=== PATIENT | female | born 2000 | race Two or more races ===

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

== ENCOUNTER 2022-03-16 20:11 | Emergency (ER) | payer OTHER, SELFPAY ==
[2022-03-16 20:23] VITALS: BP 154/86; PULSE 120; RESP 18; TEMP 36.8; O2SAT 99; BMI 45.1
--- NOTE | 2022-03-16 20:49 | PC.NURSE ---
Pt approached this RN and reported that they were going to leave. This RN educated pt on importance of seeing a provider, pt state they don't want to wait and are going to see their pcp in the morning.
== END 2022-03-16 21:04 | disposition left against medical advice (07) ==
PROVIDERS: Emergency Provider Emergency Medicine
DX: R00.2 Palpitations (principal)
CPT/HCPCS: 99281

== ENCOUNTER 2022-03-22 13:19 | Outpatient (REF) | payer OTHER, SELFPAY ==
[2022-03-22 15:49] LABS: Estimated Average Glucose 114 mg/dL; Hemoglobin A1c % 5.6 %
[2022-03-22 15:55] LABS: Glucose Random 107 mg/dL (60-115)
[2022-03-22 16:17] LABS: Thyroid Stimulating Hormone 1.01 uIU/mL (0.32-4.0)
[2022-03-22 17:35] LABS: HCG Quantitative < 2 mIU/mL
[2022-03-24 03:54] LABS: DHEA Sulfate 246 mcg/dL (44-286); Lutenizing Hormone 9.5 mIU/mL; Prolactin 13.1 ng/mL
[2022-03-29 11:28] LABS: Testosterone, Free 5.4 pg/mL (0.1-6.4); Testosterone, Total 35 ng/dL (2-45)
== END 2022-03-22 13:20 | disposition home or self-care (01) ==
LOC: HO.LAB 13:19
PROVIDERS: Visit Provider Advanced Practice Midwife
DX: N91.1 Secondary amenorrhea (principal); E66.01 Morbid (severe) obesity due to excess calories; Z71.3 Dietary counseling and surveillance
CPT/HCPCS: 36415; 82627; 82947; 83001; 83002; 83036; 84146; 84402; 84403; 84443; 84702; 99212

== ENCOUNTER 2022-04-13 14:52 | Outpatient (REF) | payer OTHER, SELFPAY ==
--- NOTE | ~2022-04-13 | US_ITS ---
EXAMINATION: US PELVIS COMPLETE CLINICAL INFORMATION: Abnormal menstruation COMPARISON: Pelvic ultrasound 01/17/2019, CT abdomen pelvis 12/09/2017 TECHNIQUE: Transabdominal and transvaginal imaging was performed. FINDINGS: The uterus is of normal size and echogenicity measuring 8.0 x 3.7 x 5.9 cm. A regular homogeneous endometrium is identified measuring 0.8 cm. Suspect arcuate morphology of the uterus. Nabothian cysts in the cervix. Debris in the urinary bladder. Both ovaries are of normal size and echogenicity. The right measures 3.8 x 2.1 x 2.5 cm. The left measures 3.9 x 2.1 x 2.7 cm. There is no pelvic free fluid. US/US pelvic and transvaginal IMPRESSION: Suspect arcuate morphology of the uterus. Ovaries are unremarkable. Debris in the urinary bladder.
== END 2022-04-13 14:53 | disposition home or self-care (01) ==
LOC: HO.US 14:52
PROVIDERS: Visit Provider Advanced Practice Midwife
DX: N91.1 Secondary amenorrhea (principal); E66.01 Morbid (severe) obesity due to excess calories
CPT/HCPCS: 76830; 76856

== ENCOUNTER → 2022-04-24 09:51 | Outpatient (BNVA) | payer OTHER, SELFPAY | PROVIDERS: PCP Physician Assistant; Visit Provider Advanced Practice Midwife | DX: N91.1 Secondary amenorrhea (principal); R03.0 Elevated blood-pressure reading, without diagnosis of hypertension; Q51.810 Arcuate uterus; E66.01 Morbid (severe) obesity due to excess calories; Z30.09 Encounter for other general counseling and advice on contraception | CPT/HCPCS: 99212 ==

== ENCOUNTER 2022-07-24 19:59 | Emergency (ER) | payer OTHER, SELFPAY ==
--- NOTE | ~2022-07-24 | XR_ITS ---
EXAMINATION: XR CHEST CLINICAL INFORMATION: 11/06/2017 COMPARISON: None available. TECHNIQUE: 2 views of the chest were obtained. FINDINGS: No significant abnormality is noted involving the heart, lungs, mediastinum, bony thorax or soft tissues. XR/XR chest 2V IMPRESSION: Unremarkable examination.
[2022-07-24 20:39] VITALS: BP 132/78; PULSE 112; RESP 20; TEMP 36.8; O2SAT 97; BMI 35.1
[2022-07-24 22:40] VITALS: BP 147/55; PULSE 98; RESP 16; TEMP 36; O2SAT 98
== END 2022-07-24 23:10 | disposition left against medical advice (07) ==
PROVIDERS: Emergency Provider Emergency Medicine
DX: R09.89 Other specified symptoms and signs involving the circulatory and respiratory systems (principal); F12.90 Cannabis use, unspecified, uncomplicated
CPT/HCPCS: 71046; 99282; 99283

== ENCOUNTER 2022-09-25 10:10 | Emergency (ER) | payer OTHER, SELFPAY ==
--- NOTE | 2022-09-25 10:27 | ECG_ITS ---
Test Reason : ANXIETY Blood Pressure : / mmHG Vent. Rate : 095 BPM Atrial Rate : 095 BPM P-R Int : 174 ms QRS Dur : 082 ms QT Int : 360 ms P-R-T Axes : 051 015 019 degrees QTc Int : 452 ms Normal sinus rhythm Minimal voltage criteria for LVH, may be normal variant ( R in aVL ) Borderline ECG No previous ECGs available Referred By: Tye Acevedo Electronically Signed By:Keanu Moreno
[2022-09-25 10:30] VITALS: BP 158/101; PULSE 110; O2SAT 98; BMI 44.1
[2022-09-25 10:36] VITALS: BP 136/87; PULSE 107; RESP 17; TEMP 37.2; O2SAT 94
[2022-09-25] MEDS: hydrOXYzine HCL 25 MG TABLET PO (10:52)
--- NOTE | 2022-09-25 12:32 | ED_ITS ---
HPI - Anxiety General Chief Complaint: Anxiety Stated Complaint: Anxiety Time Seen by Provider: 09/25/22 10:22 Source: patient Mode of arrival: EMS Limitations: no limitations History of Present Illness HPI narrative: 22-year-old female presents with a panic attack. Patient has history of anxiety. She is currently not on any medications and has no treatment. Patient awoke today to find out that her childhood friend had committed suicide. This developed in emergent panic attack with palpitations, shortness breath, chest pain, numbness and tingling in bilateral hands. Symptoms are severe. There is no clear relieving features. She herself denies any suicidal homicidal ideation. Patient was concerned she was actually having a heart attack. Patient does not have a history of cardiac disease or family history of sudden cardiac in first-degree relatives. Related Data Previous Rx's Medication Instructions Recorded albuterol sulfate 90 mcg/actuation 1 inh inhalation QID PRN shortness 07/25/22 aerosol inhaler (Ventolin HFA) of breath or wheezing #8.5 grams hydroxyzine HCl 25 mg tablet 25 mg PO TID PRN anxiety #10 tabs 09/25/22 Allergies Allergy/AdvReac Type Severity Reaction Status Date / Time kiwi [KIWI] Allergy Unknown SWOLLEN Verified 07/25/22 13:54 TOUNGE/HIVES Review of Systems Review of Systems: CONSTITUTIONAL: Denies weight loss, fever and chills. HEENT: Denies changes in vision and hearing. RESPIRATORY: + SOB and cough. CV: + palpitations no CP. GI: Denies abdominal pain, nausea, vomiting and diarrhea. : Denies dysuria and urinary frequency. MSK: Denies myalgia and joint pain. SKIN: Denies rash and pruritus. NEUROLOGICAL: Denies headache and syncope. PSYCHIATRIC: Denies recent changes in mood. + anxiety and depression. All other ROS are negative unless in HPI PMFSH Past Medical History Medical History Anxiety No known health problems Surgical History No pertinent past surgical history Family History Family History Mother No problems noted. Father Stomach cancer Colon cancer Social History Social History Alcohol intake: never Patient Tobacco Use Status: Never used Tobacco Smoked in Last 30 Days: No Use of substances other than those prescribed or required for medical reasons: Yes Substance Use Type: Marijuana Advance Directives: No Advance Directives Information Provided: No Patient : No Physical Exam Vital Signs: Vital Signs: Last Vital Signs Temp 98.9 F 09/25/22 10:36 Pulse 107 H 09/25/22 10:36 Resp 17 09/25/22 10:36 BP 136/87 09/25/22 10:36 Pulse Ox 94 09/25/22 10:36 O2 Del Method Room Air 09/25/22 10:36 BMI result Body Mass Index 44.1 GEN: Well developed, anxious appearing, alert, oriented HEENT: Normocephalic, atraumatic, normal external ears, nose appears normal, no oropharyngeal edema or exudates Eyes: Normal to appearance Neck: Supple, no lymphadenopathy Respiratory: Talks in complete sentences, no respiratory distress, clear to auscultation bilaterally Cardiovascular: Regular rate and rhythm, no murmurs rubs or gallops Abdomen: Soft, nontender, nondistended, no guarding, no rebound Back: No CVA tenderness Extremities: No clubbing cyanosis or edema Neurologic: No focal neurologic deficits, cranial nerves 2-12 intact, strength is 5/5 bilaterally Skin: No rash Course Course Course Narrative: The workup is complete. X-ray was canceled at the patient's recommendation. Patient's EKG showed no evidence of ischemia. Patient's symptoms are most consistent with an acute panic attack. I will refer the patient for outpatient services. There is no indication for emergent evaluation. I will order the p atient Vistaril to take as needed. Medications Administered Discontinued Medications Generic Name Dose Route Start Last Admin Trade Name Freq PRN Reason Stop Dose Admin Hydroxyzine HCl 25 mg 09/25/22 10:27 09/25/22 10:52 Hydroxyzine Hcl 25 Mg Tablet PO 09/25/22 10:28 25 mg ONCE ONE Administration Medical Decision Making Medical Decision Making [facility] Narrative: 22-year-old female presents with chest pain, palpitations, shortness breath, bilateral hand tingling. These were not with exertion. This was associated with an acute stressful event namely the suicide of 1 of her childhood friends. Patient was anxious appearing on my evaluation, the rest of her examination was unremarkable. An EKG will be ordered to rule out any evidence of cardiac dysrhythmia or acute ischemic changes. I will order chest x-ray to rule out acute cardiopulmonary disease. I do not see an indication for laboratory analysis at this time given that the symptoms are situational and related to a traumatic event. Differential diagnosis includes anxiety, chest pain, atypical chest pain, acute coronary syndrome, cardiopulmonary disease, cardiac dysrhythmia Differential Diagnosis Differential Diagnoses: The differential diagnosis associated with the presentation includes (See above) Admission/Observation Consideration of admission/observation: Escalation of care including admission/observation considered Independent Interpretation I performed an independent interpretation of an: EKG (Normal sinus rhythm heart rate 95, normal intervals, no acute ST elevations depressions, no evidence of right heart strain) Independent Historian Clinical information obtained from an independent historian. History obtained from or confirmed by: Parent Prescription Management I considered prescription management with: Other (Anxiety medications) Discharge Plan Discharge Clinical Impression: Acute anxiety, Panic disorder Patient Disposition: Home, Self-Care Instructions: Panic Disorder (ED), Cognitive Behavioral Therapy (ED), Anxiety (ED) Prescriptions: New hydroxyzine HCl 25 mg tablet 25 mg PO TID PRN (Reason: anxiety) Qty: 10 0RF No Action albuterol sulfate [Ventolin HFA] 90 mcg/actuation HFA aerosol inhaler 1 inh inhalation QID PRN (Reason: shortness of breath or wheezing) Qty: 8.5 1RF Referrals: [facility] [place] [facility] [Provider Group]
== END 2022-09-25 13:11 | disposition home or self-care (01) ==
PROVIDERS: Emergency Provider Emergency Medicine; PCP Nurse Practitioner Family
DX: F41.1 Generalized anxiety disorder (principal); F41.0 Panic disorder [episodic paroxysmal anxiety]; R07.89 Other chest pain; R06.02 Shortness of breath
CPT/HCPCS: 93005; 99283; 99284

== ENCOUNTER → 2022-09-25 10:27 | Outpatient (BNV) | payer OTHER, SELFPAY | PROVIDERS: Emergency Provider Emergency Medicine; PCP Nurse Practitioner Family; Visit Provider Internal Medicine Cardiovascular Disease | DX: R00.2 Palpitations (principal) | CPT/HCPCS: 93010 ==

== ENCOUNTER 2022-11-17 03:01 | Emergency (ER) | payer OTHER, SELFPAY ==
--- NOTE | 2022-11-17 | ECG_ITS ---
Test Reason : ANXIETY/CP Blood Pressure : / mmHG Vent. Rate : 104 BPM Atrial Rate : 104 BPM P-R Int : 186 ms QRS Dur : 078 ms QT Int : 346 ms P-R-T Axes : 048 027 031 degrees QTc Int : 454 ms Sinus tachycardia Possible Left atrial enlargement Borderline ECG When compared with ECG of 25-SEP-2022 10:44, No significant change was found Referred By: Generic ED Physician Electronically Signed By:TED LATHAM
[2022-11-17 03:05] VITALS: BP 136/79; BP 158/98; PULSE 115; PULSE 130; RESP 18; TEMP 37.3; O2SAT 96; O2SAT 98; BMI 43.9
[2022-11-17 04:16] VITALS: BP 133/81; PULSE 94; RESP 18; O2SAT 98
[2022-11-17 04:37] LABS: MANUAL DIFF FLAG NO
[2022-11-17 04:38] LABS: Basophils Percent Auto 0.3 % (0-2); Eosinophils Absolute Auto 0.1 X10*3/uL (0.0-0.4); Hematocrit 38.3 % (37.0-47.0); Hemoglobin 13.9 g/dl (12.0-16.0); Imm Gran Abs Auto 0.05 X10*3/uL (0.00-0.03); Imm Gran Pct Auto 0.5 % (0.0-0.4); Lymphocytes Absolute Auto 2.7 X10*3/uL (1.2-4.9); Lymphocytes Percent Auto 27.1 % (20-40); Mean Corpuscular HGB Conc 36.3 g/dl (31.0-35.0); Mean Corpuscular Hemoglobin 29.4 pg (27.0-33.0); Mean Platelet Volume 9.7 fL (9.4-12.3); Monocytes Absolute Auto 0.7 X10*3/uL (0.1-1.2); Monocytes Percent Auto 6.5 % (2-11); Neutrophils Absolute Auto 6.5 x10*3/uL (2.0-8.3); Neutrophils Percent Auto 64.6 % (45-73); Platelet Count 349 X10*3/uL (160-400); Red Blood Count 4.73 X10*6/uL (4.20-5.50); Red Cell Distribution Width 13.2 % (11.0-16.0); White Blood Count 10.1 X10*3/uL (4.8-10.8)
[2022-11-17 04:53] LABS: Anion Gap 17 (12-20); Blood Urea Nitrogen 18 mg/dL (9-16); Calcium 10.7 mg/dL (8.4-10.2); Carbon Dioxide 21 mmol/L (22-29); Chloride 106 mmol/L (96-108); Creatinine Clr Calc Pharmacy 125.9; Estimated Glomerular Filt Rate > 60; Glucose Random 149 mg/dL (60-115); Potassium 4.5 mmol/L (3.3-5.1); Sodium 139 mmol/L (135-145)
[2022-11-17 05:02] LABS: Troponin-I High Sensitivity < 2.7 ng/L (<3.5-17.0)
== END 2022-11-17 06:57 | disposition left against medical advice (07) ==
PROVIDERS: Internal Medicine; Emergency Provider Emergency Medicine; PCP Nurse Practitioner Family
DX: R07.9 Chest pain, unspecified (principal); F41.9 Anxiety disorder, unspecified; F12.90 Cannabis use, unspecified, uncomplicated
CPT/HCPCS: 36415; 80048; 84484; 85025; 93005; 99283; 99284

== ENCOUNTER 2022-12-05 14:32 | Outpatient (AMB) | payer OTHER, SELFPAY ==
--- NOTE | 2022-12-05 14:38 | MHC.PC.OV ---
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 She states she has put on weight since then and is active. She stopped control around 2018. she would also like to talk about her anxiety that has been very bad that it causes heart palpitations and has been hospitalized for this. 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 Will order labs. Pt reports irregular/missed periods. 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 [facility] Medical History Anxiety No known health problems Surgical History No pertinent past surgical history Family History Mother Anxiety Father Stomach cancer Colon cancer Social History Alcohol intake: current Alcohol intake frequency: holidays/special occasions only Patient Tobacco Use Status: Current someday Tobacco user e-Cigarette/Vaping Use: Never Used Substance Use Type: Marijuana Cognitive needs: No Hearing needs: No Vision needs: No Female Reproductive History Menstrual Age of Menarche: 12 Duration of menses: 6-7 days Date of last menstrual period: 07/23/22 control method: none Questionnaire PHQ-9 Over the last 2 weeks, how often have you been bothered by any of the following problems? 1. Little interest or pleasure in doing things: several days 2. Feeling down, depressed, or hopeless: several days 3. Trouble falling or staying asleep, or sleeping too much: more than half the days 4. Feeling tired or having little energy: more than half the days 5. Poor appetite or overeating: several days 6. Feeling bad about yourself - or that you are a failure or have let yourself or your family down: nearly every day 7. Trouble concentrating on things, such as reading the newspaper or watching television: several days 8. Moving or speaking so slowly that other people could have noticed. Or the opposite - being so fidgety or restless that you have been moving around a lot more than usual: not at all 9. Thoughts that you would be better off or of hurting yourself in some way: not at all Total score: 11 Depression Screening Interpretation: Positive 77449 - PHQ-9 Billing: Yes Source: Developed by Drs. Felice Velasquez, Jennifer Braga, Abram Ramos and colleagues, with an educational crista from [employer]. Thrive Questionnaire Date Thrive assessed: 12/05/22 I am a: Patient What is your living situation today?: I have a steady place to live Within the past 12 months, did the food you bought not last and you didn't have the money to get more?: Never true Within the past 12 months, did you worry whether your food would run out before you got money to buy more?: Sometimes True Do you have trouble paying for medicines?: No Do you have trouble getting transportation to medical appointments?: No Do you have trouble paying your heating and electricity bill?: No Do you have trouble taking care of your child, family member or friend?: No Do you have trouble with day-to-day activities such as bathing, preparing meals, shopping, managing finances, etc.?: No Are you currently unemployed and looking for a job?: No Are you interested in more education?: Yes NEGRO-7 AMB Questionnaire NEGRO-7 Date NEGRO - 7 assessed: 12/05/22 Feeling nervous, anxious, or on edge: 2 = More than half the days Not being able to stop or control worryin = More than half the days Worrying too much about different things: 2 = More than half the days Trouble relaxin = Several days Being so restless that it is hard to sit still: 1 = Several days Becoming easily annoyed or irritable: 3 = Nearly every day Feeling afraid as if something awful might happen: 3 = Nearly every day Total NEGRO-7 score (0-4 normal; 5-9 mild; 10-14 moderate; 15-21 severe): 14 Source: Developed by Drs. Felice Velasquez, Jennifer Braga, Abram Ramos and colleagues, with an educational crista from [employer]. NEGRO-7 Assessment Billing NEGRO-7 Assessment Tool: NEGRO-7 Assessment 89656 Review of Systems Const Denies chills and Denies fever(s) Eyes Denies blurry vision ENT Denies vertigo, Denies dizziness and Denies sore throat Card Denies chest pain at rest, Denies chest pain with activity, Denies diaphoresis, Denies dyspnea and Denies dyspnea on exertion Resp Denies cough, Denies dyspnea, Denies dyspnea on exertion and Denies wheezing GI Denies abdominal pain, Denies melena, Denies hematochezia, Denies constipation, Denies diarrhea and Denies loose stools Denies hematuria Musc Denies numbness and Denies tingling Skin/Breast Denies lesions Neuro Denies vertigo, Denies dizziness, Denies numbness and Denies tingling Psych Denies anxiety, Denies depression, Denies homicidal ideation, Denies suicidal ideation and Denies other (substance abuse) Aller/Immun Denies wheezing Physical exam (Primary Care) Vital Signs: Last Vital Signs Pulse 104 H 12/05/22 14:41 BP 116/72 12/05/22 14:41 Pulse Ox 98 12/05/22 14:41 Oxygen Delivery Method Room Air 12/05/22 14:41 BMI result Body Mass Index 42.4 Tobacco/Smoking Status: Tobacco use Status Tobacco use date assessed 12/05/22 12/05/22 14:50 Patient Tobacco Use Status Current someday Tobacco 12/05/22 14:50 e-Cigarette/Vaping Use Never Used 12/05/22 14:50 Depression Screening Interpretation: Positive Const General: cooperative Nutritional Appearance: obese morbidly obese Orientation/consciousness: patient oriented x3 HENMT Head: Yes normal to inspection, Yes normocephalic and Yes atraumatic Ears: TM's normal bilaterally Eyes General: appearance normal, both eyes and all related structures Alignment and Position: alignment normal and position normal Neck Neck: Yes normal visual inspection and Yes no lymphadenopathy Thyroid: Thyroid normal Resp Effort & Inspection: normal respiratory effort Auscultation: clear to auscultation bilaterally Cardio Rate: regular rate Rhythm: regular rhythm Heart sounds: S1 normal heart sound present, S2 normal heart sound present and no murmurs GI Palpation (GI): Soft to palpation and nontender Auscultation: normal bowel sounds Skin Rashes: no rashes Neuro General: patient oriented x3, moves all extremities, no focal motor deficits and deep tendon reflexes 2+ bilaterally Romberg Test: Negative Psych Appearance: grossly normal Mental Status: mental status grossly normal Speech and movement: Normal speech and movement present Affect: normal affect Attitude: cooperative Thought process: Normal thought process present Thought content: Normal thought content present Insight: Good insight present (Psych) Judgement: Good judgement present (Psych) Assessment and Plan Assessment & Plan (1) Physical exam: Code(s): Z. - Encounter for general adult medical examination without abnormal findings Plan: Labs ordered Plan The patient agreed to the use of a medical equipment repair technician for this encounter. Scribed for TON Emmanuel by Amy Sparks medical equipment repair technician, on 12/05/2022 at 14:55 EST. Orders: Orders Complete Blood Count Auto Diff Today Z00.00 - Encounter for general adult medical examination without abnormal findings TSH reflex Free T4 Today Z00.00 - Encounter for general adult medical examination without abnormal findings Lipid Panel Today Z00.00 - Encounter for general adult medical examination without abnormal findings Comprehensive Mckean. Panel Fast Today Z00.00 - Encounter for general adult medical examination without abnormal findings UA CC w/rflx Micro + Cult Today Z00.00 - Encounter for general adult medical examination without abnormal findings Coding Level of Care Code New Pt Prev Care 18-39yr([id number] Diagnoses Physical exam Z00.00 Additional Codes NEGRO-7 Assessment Billing - NEGRO-7 Assessment Tool: NEGRO-7 Assessment 84375 ([id number])
[2022-12-05 14:41] VITALS: BP 116/72; PULSE 104; O2SAT 98; BMI 42.4
== END 2022-12-05 15:14 | disposition home or self-care (01) ==
PROVIDERS: Visit Provider Nurse Practitioner Family
DX: Z00.00 Encounter for general adult medical examination without abnormal findings (principal)
CPT/HCPCS: 99385

== ENCOUNTER 2022-12-17 11:09 | Outpatient (AMB) | payer OTHER, SELFPAY ==
[2022-12-17 12:51] VITALS: BP 122/80; PULSE 96; O2SAT 98; BMI 42.6
--- NOTE | 2022-12-17 12:51 | MHC.OFFWIV ---
Intake Vital Signs 12/17/22 12:51 Height 5 ft 5 in Weight 256 lb BMI 42.6 BP 122/80 Blood Pressure Location Lt brachial Position Sitting Pulse 96 Pulse Source Pulse Oximeter Pulse Oximetry (%) 98 Oxygen Delivery Method Room Air Intake Visit Reasons: EP ?Strep [id number] Intake Note: Ptis here today for a walk in visit. Pt c/o sore throat for 2 days. Pt states that she cant swallow today. Patient Tobacco Use Status: Current someday Tobacco user Allergies kiwi [KIWI] Allergy (Unknown, Verified 12/17/22 13:14) SWOLLEN TOUNGE/HIVES Medication List - Last Reconciled 12/17/22 by Geraldo Rosado MD No Known Home Meds Do you need a note to return to daycare/school/sports/work: No HPI EP ?Strep [id number] HPI Details Patient presents for a sick visit. Reporting symptoms of sinus congestion, sore throat and difficulty swallowing. Low-grade fever. No family member is sick. No recent travel. Patient reports symptoms of malaise and fatigue. [facility] Medical History Anxiety No known health problems Surgical History No pertinent past surgical history Family History Mother Anxiety Father Stomach cancer Colon cancer Social History Alcohol intake: current Alcohol intake frequency: holidays/special occasions only Patient Tobacco Use Status: Current someday Tobacco user e-Cigarette/Vaping Use: Never Used Substance Use Type: Marijuana Cognitive needs: No Hearing needs: No Vision needs: No Female Reproductive History Menstrual Age of Menarche: 12 Physical Exam Vital Signs: Last Vital Signs Pulse 96 12/17/22 12:51 BP 122/80 12/17/22 12:51 Pulse Ox 98 12/17/22 12:51 Oxygen Delivery Method Room Air 12/17/22 12:51 BMI result Body Mass Index 42.6 Const General: cooperative and healthy appearing Nutritional Appearance: well nourished Orientation/consciousness: patient oriented x3 Limitations: no limitations HEENT Head: Yes normal to inspection Eyes General: appearance normal, both eyes and all related structures Neck Neck: Yes normal visual inspection Chest Chest palpation & inspection: normal palpation of entire chest wall Resp Effort & Inspection: normal respiratory effort Neuro General: patient oriented x3 Results AMB Rapid Strep AMB Rapid Strep Negative Last Edit by JORDAN Rosenthal on 12/17/22 13:04 Results Reviewed Results Reviewed: Laboratory Last Values Strep Scn [facility] Negative 12/17/22 12:57 Assessment & Plan Assessment & Plan (1) URI (upper respiratory infection): Code(s): J06.9 - Acute upper respiratory infection, unspecified Qualifiers: URI type: unspecified viral URI Qualified Code(s): J06.9 - Acute upper respiratory infection, unspecified Plan: Antibiotics ordered. Increase fluid intake. Tylenol for aches and pains. If symptoms worsen, follow-up here for a recheck. Orders: Orders AMB Rapid Strep Screen Today Z13.9 - Encounter for screening, unspecified Coding Level of Care Code Est Pt Level 3 (40628) Diagnoses Viral upper respiratory tract infection J06.9 URI type: unspecified viral URI
== END 2022-12-17 13:25 | disposition home or self-care (01) ==
PROVIDERS: PCP Nurse Practitioner Family; Visit Provider Internal Medicine
DX: J06.9 Acute upper respiratory infection, unspecified (principal); J02.9 Acute pharyngitis, unspecified
CPT/HCPCS: 87880; 99213

== ENCOUNTER 2022-12-17 11:12 | Outpatient (REF) | payer OTHER, SELFPAY ==
[2022-12-17 13:31] LABS: MANUAL DIFF FLAG NO
[2022-12-17 13:49] LABS: Basophils Absolute Auto 0.1 X10*3/uL (0.0-0.2); Basophils Percent Auto 0.5 % (0-2); Eosinophils Absolute Auto 0.1 X10*3/uL (0.0-0.4); Eosinophils Percent Auto 1.2 % (0-4); Hematocrit 40.2 % (37.0-47.0); Hemoglobin 13.6 g/dl (12.0-16.0); Imm Gran Abs Auto 0.04 X10*3/uL (0.00-0.03); Imm Gran Pct Auto 0.3 % (0.0-0.4); Lymphocytes Absolute Auto 2.6 X10*3/uL (1.2-4.9); Lymphocytes Percent Auto 21.5 % (20-40); Mean Corpuscular HGB Conc 33.8 g/dl (31.0-35.0); Mean Corpuscular Hemoglobin 28.9 pg (27.0-33.0); Mean Corpuscular Volume 85.4 fL (80.0-98.0); Mean Platelet Volume 10.5 fL (9.4-12.3); Monocytes Absolute Auto 0.6 X10*3/uL (0.1-1.2); Monocytes Percent Auto 5.3 % (2-11); Neutrophils Absolute Auto 8.5 x10*3/uL (2.0-8.3); Neutrophils Percent Auto 71.2 % (45-73); Platelet Count 353 X10*3/uL (160-400); Red Blood Count 4.71 X10*6/uL (4.20-5.50); Red Cell Distribution Width 13.2 % (11.0-16.0); White Blood Count 11.9 X10*3/uL (4.8-10.8)
[2022-12-17 14:24] LABS: Alanine Aminotransferase 75 U/L (0-31); Albumin Level 4.6 g/dL (3.5-5.0); Alkaline Phosphatase 82 U/L (39-117); Anion Gap 18 (12-20); Aspartate Amino Transferase 45 U/L (5-31); Bilirubin Total 0.8 mg/dL (0.0-1.0); Blood Urea Nitrogen 11 mg/dL (9-16); Calcium 10.4 mg/dL (8.4-10.2); Carbon Dioxide 22 mmol/L (22-29); Chloride 102 mmol/L (96-108); Cholesterol 195 mg/dL (<200); Estimated Glomerular Filt Rate > 60; Glucose Fasting 124 mg/dL (60-99); HDL Cholesterol 34 mg/dL (>40); LDL Cholesterol Calculated 110 mg/dL (<100); Potassium 3.9 mmol/L (3.3-5.1); Sodium 138 mmol/L (135-145); Total Protein 8.1 g/dL (6.5-8.0); Triglycerides 258 mg/dL (<150)
[2022-12-17 14:28] LABS: TSH reflex Free T4 1.05 uIU/mL (0.32-4.0)
== END 2022-12-17 11:13 | disposition home or self-care (01) ==
LOC: HO.HMGCLDS 11:12
PROVIDERS: PCP Nurse Practitioner Family; Visit Provider Nurse Practitioner Family
DX: Z00.00 Encounter for general adult medical examination without abnormal findings (principal); R74.8 Abnormal levels of other serum enzymes
CPT/HCPCS: 36415; 80053; 80061; 84443; 85025

== ENCOUNTER 2022-12-27 14:14 | Emergency (ER) | payer OTHER, SELFPAY ==
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
[2022-12-27 14:37] VITALS: BP 148/90; PULSE 78; O2SAT 99; BMI 44.3
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
[2022-12-27] MEDS: Ondansetron ODT 4 MG TAB.RAPDIS TRANSLINGU (14:50)
--- NOTE | 2022-12-27 14:55 | PC.NURSE ---
pt medicated per provider order. currently being taken to CT. c-collar in place.
--- NOTE | 2022-12-27 15:02 | PC.NURSE ---
pt returned from CT. pt resting comfortably in no apparent distress in stretcher. respirations even and unlabored.
--- NOTE | 2022-12-27 15:34 | PC.NURSE ---
pt's grandma bedside for support. pt currently teary eyed stating that their whole body is now aching at this time.
--- NOTE | 2022-12-27 15:50 | PC.NURSE ---
c-collar removed by PA. provider speaking w/ pt and pt's family at this time.
== END 2022-12-27 16:04 | disposition home or self-care (01) ==
PROVIDERS: Emergency Provider Emergency Medicine Emergency Medical Services; PCP Nurse Practitioner Family
DX: Z04.1 Encounter for examination and observation following transport accident (principal); E66.9 Obesity, unspecified; Z68.41 Body mass index [BMI] 40.0-44.9, adult; F17.200 Nicotine dependence, unspecified, uncomplicated; F12.90 Cannabis use, unspecified, uncomplicated
CPT/HCPCS: 70450; 72125; 99282; 99284

== ENCOUNTER 2023-01-03 08:48 | Outpatient (REF) | payer OTHER, SELFPAY ==
--- NOTE | ~2023-01-03 | US_ITS ---
EXAMINATION: US ABDOMEN COMPLETE CLINICAL INFORMATION: Abnormal levels of other serum enzymes. COMPARISON: Ultrasound abdomen 02/12/2019. CT abdomen and pelvis 12/09/2017. TECHNIQUE: Real-time imaging of the abdominal viscera. FINDINGS: PANCREAS: Normal head and body, the tail is not well seen. ABDOMINAL AORTA: The proximal, mid, and distal segments are normal in caliber. INFERIOR VENA CAVA: Visualized portions are normal. LIVER: The liver is enlarged with the left lobe measuring 17.1 cm in the right lobe measuring 22.2 cm in sagittal oblique dimension. The liver contour is normal. There is diffuse increased liver parenchymal echogenicity, consistent with hepatic steatosis. Focal fatty sparing is seen adjacent to the gallbladder. No focal hepatic lesion. There is no intrahepatic biliary duct dilatation seen. GALLBLADDER: Normal. The gallbladder is physiologically distended without evidence of stones, sludge, polyps, wall thickening or pericholecystic fluid. COMMON BILE DUCT: Normal in caliber measuring 0.4 cm in diameter. RIGHT KIDNEY: Normal. No hydronephrosis. No renal calculi or focal parenchymal lesions. The kidney measures 12.0 cm in maximum dimension. LEFT KIDNEY: Normal. No hydronephrosis. No renal calculi or focal parenchymal lesions. The kidney measures 11.5 cm in maximum dimension. SPLEEN: Normal. The spleen measures 12.4 cm in maximum dimension. FREE FLUID: None. US/US abdomen complete IMPRESSION: Enlarged fatty liver.
== END 2023-01-03 08:49 | disposition home or self-care (01) ==
LOC: HO.HMGCX 08:48
PROVIDERS: PCP Nurse Practitioner Family; Visit Provider Nurse Practitioner Family
DX: R74.8 Abnormal levels of other serum enzymes (principal)
CPT/HCPCS: 76700

== ENCOUNTER 2023-01-04 10:31 | Outpatient (AMB) | payer OTHER, SELFPAY ==
--- NOTE | 2023-01-04 10:33 | A.OFFVIS_ITS ---
Intake Vital Signs 01/04/23 10:34 Height 5 ft 3 in Weight 251 lb BMI 44.5 BP 126/80 Intake Visit Reasons: irregular periods Intake Note: has not had menses Per Diem Rn Required: No Information Interpreted: non-clinical & clinical Color Making Supervisor: Color Making Supervisor Present (Estuardo) Allergies kiwi [KIWI] Allergy (Unknown, Verified 01/04/23 10:37) SWOLLEN TOUNGE/HIVES Medication List - Last Reconciled 01/04/23 by Iza Romero CNM No Known Home Meds Is last menstrual period known: No Post menopausal: No HPI irregular periods HPI Details Patient is here because she has been missing her.. She has been seen here before and these issues have been discussed in detail she is morbidly obese she has been prescribed Provera before and she has had a successful withdrawal bleed and she was started on norethindrone control pills, but she did not resume regular menses and then they got rid of all their furniture and she thinks that the last pack of control pills was stuck in the cushions of the couch. Since she last saw me she moved out of the. house with her mother and she is with her boyfriend and she says she has a lot less stress and she is working on getting a therapist and she saw her doctor a while back and he was encouraging her to continue on weight loss and she and her boyfriend are setting up meal plans and are going to the gym every day for 3 hours in the evening and they are working on getting healthier and stronger and she is working on losing the weight and she is actually feeling good working out she also got rid of toxic relationship/friend that was stressing her out as well she is hoping that she can keep going on her weight loss goal she is open to the weight management program she did not know there was 1. She does want to figure out why she is not getting her. And I explained again that it has to do with everything that we have talked about and her weight has a huge in this and until she loses the weight she would refer return to normal menses. She will be due for her 1st Pap smear when she turns 23. She says she was checked for all STIs with her primary care provider in [place]. She says she uses condoms every time the last time she did not use condoms was in September. She wants to get the medicine to bring on a period. Again [facility] Medical History Elevated liver enzymes Physical exam Shortness of breath Arcuate uterus control counseling Elevated blood pressure reading Obesity, morbid, BMI 40.0-49.9 Breast mass, right URI (upper respiratory infection) Pharyngitis Abnormal laboratory test High risk sexual behavior in adolescent Amenorrhea, secondary Anxiety No known health problems Surgical History No pertinent past surgical history Family History Mother Anxiety Father Stomach cancer Colon cancer Social History Alcohol intake: current Alcohol intake frequency: holidays/special occasions only Patient Tobacco Use Status: Current someday Tobacco user e-Cigarette/Vaping Use: Never Used Substance Use Type: Marijuana Cognitive needs: No Hearing needs: No Vision needs: No Female Reproductive History Menstrual Age of Menarche: 12 control method: none Total pregnancies: 1 Ab spontaneous: 1 Physical Exam Vital Signs: Last Vital Signs BP 126/80 01/04/23 10:34 BMI result Body Mass Index 44.5 Results AMB Test Urine AMB Test Urine Negative Last Edit by POLI Jones on 01/04/23 11:24 Results Reviewed Results Reviewed: test here was negative. Assessment & Plan Assessment & Plan (1) Anxiety: Code(s): F41.9 - Anxiety disorder, unspecified (2) Amenorrhea, secondary: Code(s): N91.1 - Secondary amenorrhea (3) Arcuate uterus: Code(s): Q51.810 - Arcuate uterus (4) control counseling: Code(s): Z30.09 - Encounter for other general counseling and advice on contraception (5) Obesity, morbid, BMI 40.0-49.9: Code(s): E66.01 - Morbid (severe) obesity due to excess calories Plan Patient is here because she has been missing her.. She has been seen here before and these issues have been discussed in detail she is morbidly obese she has been prescribed Provera before and she has had a successful withdrawal bleed and she was started on norethindrone control pills, but she did not resume regular menses and then they got rid of all their furniture and she thinks that the last pack of control pills was stuck in the cushions of the couch. Since she last saw me she moved out of the. house with her mother and she is with her boyfriend and she says she has a lot less stress and she is working on getting a therapist and she saw her doctor a while back and he was encouraging her to continue on weight loss and she and her boyfriend are setting up meal plans and are going to the gym every day for 3 hours in the evening and they are working on getting healthier and stronger and she is working on losing the weight and she is actually feeling good working out she also got rid of toxic relationship/friend that was stressing her out as well she is hoping that she can keep going on her weight loss goal she is open to the weight management program she did not know there was 1. She does want to figure out why she is not getting her. And I explained again that it has to do with everything that we have talked about and her weight has a huge in this and until she loses the weight she would refer return to normal menses. She will be due for her 1st Pap smear when she turns 23. She says she was checked for all STIs with her primary care provider in [place]. She says she uses condoms every time the last time she did not use condoms was in September. She wants to get the medicine to bring on a period. Again After lengthy discussion about her anxiety in the weight loss and her motivation and recent 1-2 weeks of success and to build on that decision made by her to retake the Provera to bring on a period because she really feels like she needs to get 1. When she gets the withdrawal bleed a couple of days into it I would like her to start the norethindrone control pills I recommend she continue using the condoms which she says she does anyway but hopefully this will help prevent the buildup of the lining. We will see her for office services clerk annual exam and full 1st pelvic and Pap at the next visit I am also placing weight manage were referral for her because she says she is interested and I wished her continued work on her efforts. Orders: Orders AMB HCG Urine Test Today Z32.02 - Encounter for test, result negative Referrals Medical Weight Management Referral E66.01 - Morbid (severe) obesity due to excess calories, F41.9 - Anxiety disorder, unspecified, N91.1 - Secondary amenorrhea, Q51.810 - Arcuate uterus, Z30.09 - Encounter for other general counseling and advice on contraception Medications: New medroxyprogesterone (Provera) 10 mg PO DAILY 10 tabs 0RF norethindrone (contraceptive) She can start the pills a couple of days in to the withdrawal bleed from the Provera, 1 pill every day 0.35 mg PO DAILY 84 tabs 3RF Coding Level of Care Code Est Pt Level 3 (86127) Diagnoses Anxiety F41.9 Amenorrhea, secondary N91.1 Arcuate uterus Q51.810 control counseling Z30.09 Obesity, morbid, BMI 40.0-49.9 E66.01
[2023-01-04 10:34] VITALS: BP 126/80; BMI 44.5
== END 2023-01-04 11:58 | disposition home or self-care (01) ==
PROVIDERS: PCP Nurse Practitioner Family; Visit Provider Advanced Practice Midwife
DX: F41.9 Anxiety disorder, unspecified (principal); N91.1 Secondary amenorrhea; Q51.810 Arcuate uterus; Z30.09 Encounter for other general counseling and advice on contraception; E66.01 Morbid (severe) obesity due to excess calories; Z32.02 Encounter for pregnancy test, result negative
CPT/HCPCS: 99213

== ENCOUNTER → 2023-01-04 10:31 | Outpatient (BNVA) | payer OTHER, SELFPAY | PROVIDERS: PCP Nurse Practitioner Family; Visit Provider Advanced Practice Midwife | DX: Z30.09 Encounter for other general counseling and advice on contraception (principal); Z32.02 Encounter for pregnancy test, result negative; N91.1 Secondary amenorrhea; F41.9 Anxiety disorder, unspecified; Q51.810 Arcuate uterus; E66.01 Morbid (severe) obesity due to excess calories; Z68.41 Body mass index [BMI] 40.0-44.9, adult | CPT/HCPCS: 81025; 99212 ==

== ENCOUNTER → 2023-01-15 10:21 | Outpatient (BNVA) | payer OTHER, SELFPAY | PROVIDERS: PCP Nurse Practitioner Family; Visit Provider Physician Assistant ==

== ENCOUNTER 2023-01-16 08:03 | Outpatient (AMB) | payer OTHER, SELFPAY ==
--- NOTE | 2023-01-16 12:30 | A.OFFVIS_ITS ---
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 HPI Details Start time: 8.15am, End time: 9am ?I spent 40 minutes speaking with the patient on the phone plus an additional 5 minutes reviewing and updating records for a total of 45 minutes HPI Comments History of Present Illness Details Previous weight loss efforts: 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, 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 Wakes up: 8am, Sleeps: 12pm Breakfast: skips Lunch: skips Dinner: 6pm Snacks: 2 snacks before dinner (Cheez it, vegetables), one snack after dinner (cookies or avocado) Exercise: home exercise videos Fluids: Coffee/Tea: none, juice: frequently, ETOH: 1/month PFSH Medical History (Updated 01/16/23 @ 12:33 by Luis Cuellar MD) Morbid obesity Elevated liver enzymes Physical exam Shortness of breath Arcuate uterus control counseling Elevated blood pressure reading Obesity, morbid, BMI 40.0-49.9 Breast mass, right URI (upper respiratory infection) Pharyngitis Abnormal laboratory test High risk sexual behavior in adolescent Amenorrhea, secondary Anxiety No known health problems Surgical History No pertinent past surgical history Family History Mother Anxiety Father Stomach cancer Colon cancer Social History Alcohol intake: current Alcohol intake frequency: holidays/special occasions only Patient Tobacco Use Status: Current someday Tobacco user e-Cigarette/Vaping Use: Never Used Substance Use Type: Marijuana Cognitive needs: No Hearing needs: No Vision needs: No Female Reproductive History Menstrual Age of Menarche: 12 Assessment & Plan Assessment & Plan (1) Morbid obesity: Code(s): E66.01 - Morbid (severe) obesity due to excess calories Plan: 1.? Plan for lap sleeve gastrectomy. If diaphragmatic or ventral hernias are present at time of surgery, these will be repaired laparoscopically as well. Risks and complications were discussed in detail including possible conversion to an open procedure, anastomotic leak, bleeding requiring transfusion, small bowel obstruction, , DVT and pulmonary embolism, cardiac, or pulmonary complications, as half-way complications such as anastomotic ulcer, insufficient weight loss and vitamin deficiencies. I emphasized the importance of close follow-up, adherence to instructions and good communication. 2. Nutritional counseling. Start with 2 Isopure INFUSIONS protein (buy at [employer], or C) shakes (HALF scoop in 8oz water) at 9am-11am and 12pm-12pm, 1 protein bar (Zone Perfect protein bars, buy at [employer], ?[employer], [facility], or [employer]) at 3pm-5pm, dinner at 6pm (8 forks of protein and 8 forks of salad/vegetables) AND TWO more protein bars after dinner at 7pm-9pm and 10pm-12am So you do 2 protein shakes, 3 protein bars and one meal per day. Meal to include lean meat (beef, fish, pork, turkey, chicken), or serbian yogurt, or egg whites, or beans with a salad with olive oil and fruits (berries, pears, apples, kiwi). Avoid salt, breads, potatoes, rice, pasta, desserts. 3. Each shake would be drunk slowly, like coffee in a period of 2 hours. 4. Cut each bar in 4 pieces and eat each piece in 30min ?to make each bar last 2 hours. 5. I emphasized the importance of measuring accurately the food portion and measure it when serving the food in plate 6. The meal portions include 8 full-size forks of meat and 8 full-size forks of salad. You always eat the meat portion but you can replace up to 4 forks for salad/vegetables with rice, potatoes or pasta, or a fruit ?if you like. The less you do it the better weight loss will be. 7. One full-size fork is what it can be scooped on the fork without falling aside and not what can be bit with the fork. Use regular forks like those you find in a typical restaurant. 8.? Please send me weight measurements as soon as possible and then once a week. Always include your diet and exercise plan. 9. Continue home exercise videos daily for 45-60 minutes per session. 10. I would strongly recommend to purchase a stationary bike, elliptical or treadmill at home that can track calories. Let me know if you do so I can give you an exercise plan. 11.?It is important of avoiding and for at least 18 months postoperatively and has been discussed at the infosession. 12. Goal is to lose at least 1.5-2lbs per week 13. Goal to lose 10% of your weight before surgery, which is about 25lbs. Ultimate weight goal: 225lbs before surgery 14. Please follow the diet plan exactly without any change. If you don't like something about the plan or you feel hungry you need to communicate with me so I can help you revise the plan. You should not change the plan yourself. (2) Anxiety: Code(s): F41.9 - Anxiety disorder, unspecified Orders: Orders Lipid Panel Today E66.01 - Morbid (severe) obesity due to excess calories IRON PROFILE Today E66.01 - Morbid (severe) obesity due to excess calories Comprehensive Met. Panel Today E66.01 - Morbid (severe) obesity due to excess calories Ferritin Today E66.01 - Morbid (severe) obesity due to excess calories H Pylori Breath Test Today E66.01 - Morbid (severe) obesity due to excess calories US abdomen comp w elastography Today E66.01 - Morbid (severe) obesity due to excess calories XR chest 2V Today E66.01 - Morbid (severe) obesity due to excess calories Insulin Today E66.01 - Morbid (severe) obesity due to excess calories Complete Blood Count Auto Diff Today E66.01 - Morbid (severe) obesity due to excess calories Vitamin B12 and Folate Today E66.01 - Morbid (severe) obesity due to excess calories Zinc Today E66.01 - Morbid (severe) obesity due to excess calories Vitamin B1 Today E66.01 - Morbid (severe) obesity due to excess calories Vitamin A Today E66.01 - Morbid (severe) obesity due to excess calories C Reactive Protein Today E66.01 - Morbid (severe) obesity due to excess calories PTHI Today E66.01 - Morbid (severe) obesity due to excess calories TSH reflex Free T4 Today E66.01 - Morbid (severe) obesity due to excess calories Vitamin D 25-OH Total Today E66.01 - Morbid (severe) obesity due to excess calories Hemoglobin A1c Today E66.01 - Morbid (severe) obesity due to excess calories ECG 12 lead EKG Today E66.01 - Morbid (severe) obesity due to excess calories FL upper GI w air Today E66.01 - Morbid (severe) obesity due to excess calories Referrals Nutrition/Dietitian Referral E66.01 - Morbid (severe) obesity due to excess calories Behavioral Health Referral E66.01 - Morbid (severe) obesity due to excess calories Telehealth Telehealth Location of provider rendering services: practice address Location of patient: address on file Patient Identification confirmed using: Name, : Yes Telehealth method: voice only Patient verbally consented to treatment: Yes Patient verbally consented to billing insurance company: Yes Patient informed of any privacy concerns related to visit: Yes Minutes spent on Phone/Video with Pt.: 45 Coding Level of Care Code Tele New Pt Level 4 (76759) Diagnoses Morbid obesity E66.01 Anxiety F41.9 Time Spent (min) 45
[2023-01-16 12:31] VITALS: BMI 44.4
== END 2023-01-16 13:01 | disposition home or self-care (01) ==
LOC: HO.HBS 08:03
PROVIDERS: PCP Nurse Practitioner Family; Visit Provider Surgery
DX: E66.01 Morbid (severe) obesity due to excess calories (principal); F41.9 Anxiety disorder, unspecified
CPT/HCPCS: 99204

== ENCOUNTER → 2023-01-16 08:03 | Outpatient (BNVA) | payer OTHER, SELFPAY | PROVIDERS: PCP Nurse Practitioner Family; Visit Provider Surgery ==

== ENCOUNTER 2023-01-28 10:48 | Outpatient (AMB) | payer OTHER, SELFPAY ==
--- NOTE | 2023-01-28 11:00 | MHC.NURWM ---
Intake Intake Visit Reasons: H. Pylori Intake Note: Patient presents for collection of H Pylori breath test. Patient has been fasting for 1 hour (nothing to eat, drink, no chewing gum or smoking) has not taken any antacid medication for at least 2 weeks and has no allergies to artificial sweeteners.?? Allergies kiwi [KIWI] Allergy (Unknown, Verified 01/16/23 12:32) SWOLLEN TOUNGE/HIVES Nursing Note Patient presents for collection of H Pylori breath test. Patient has been fasting for 1 hour (nothing to eat, drink, no chewing gum or smoking) has not taken any antacid medication for at least 2 weeks and has no allergies to artificial sweeteners.???This test checks for an overgrowth of bacteria in your stomach. We all have bacteria but some may have more than others. It is treatable. if the test comes back negative there is nothing else to do. If the test result is positive we will treat you with 2 antibiotics and a medication to decrease the acid in your stomach (PPI) for 2 weeks. Two weeks after you have completed the treatment we will retest you to make sure the overgrowth has resolved. H pylori education: Process for specimen collection and reason for testing was explained to the patient. Specimen collection. Patient instructed to take a deep breath and then exhale into the blue bag, filling it up as much as possible. Patient instructed to drink a mixture of water and the artificial sweetener with a straw. A 15 minute wait period was observed. Patient instructed to take a deep breath and then exhale into the juan bag, filling it up as much as possible.?? Coding Level of Care Code Est Pt Level 1 (02886) Diagnoses Morbid obesity E66.01 Assessment & Plan Assessment & Plan (1) Morbid obesity: Code(s): E66.01 - Morbid (severe) obesity due to excess calories Plan
== END 2023-01-28 13:45 | disposition home or self-care (01) ==
PROVIDERS: PCP Nurse Practitioner Family; Visit Provider Physician Assistant Surgical
DX: E66.01 Morbid (severe) obesity due to excess calories (principal)

== ENCOUNTER 2023-01-28 10:48 | Outpatient (REF) | payer OTHER, SELFPAY ==
--- NOTE | ~2023-01-28 | XR_ITS ---
EXAMINATION: XR CHEST CLINICAL INFORMATION: Reason for Exam E66.01 - Morbid (severe) obesity due to excess calories COMPARISON: Chest radiograph 07/25/2019 TECHNIQUE: One view of the chest FINDINGS: Lines and tubes: None. Clear lungs. No pleural effusion. No pneumothorax. Unchanged cardiomediastinal silhouette. XR/XR chest 2V IMPRESSION: * Clear lungs.
[2023-01-28 11:51] LABS: MANUAL DIFF FLAG NO
[2023-01-28 11:55] LABS: Basophils Percent Auto 0.4 % (0-2); Eosinophils Absolute Auto 0.1 X10*3/uL (0.0-0.4); Eosinophils Percent Auto 1.8 % (0-4); Hematocrit 39.7 % (37.0-47.0); Hemoglobin 14.3 g/dl (12.0-16.0); Imm Gran Abs Auto 0.03 X10*3/uL (0.00-0.03); Imm Gran Pct Auto 0.4 % (0.0-0.4); Lymphocytes Absolute Auto 2.3 X10*3/uL (1.2-4.9); Lymphocytes Percent Auto 31.2 % (20-40); Mean Corpuscular Hemoglobin 29.4 pg (27.0-33.0); Mean Corpuscular Volume 81.5 fL (80.0-98.0); Mean Platelet Volume 9.7 fL (9.4-12.3); Monocytes Absolute Auto 0.4 X10*3/uL (0.1-1.2); Monocytes Percent Auto 5.2 % (2-11); Neutrophils Absolute Auto 4.4 x10*3/uL (2.0-8.3); Platelet Count 330 X10*3/uL (160-400); Red Blood Count 4.87 X10*6/uL (4.20-5.50); Red Cell Distribution Width 13.1 % (11.0-16.0); White Blood Count 7.2 X10*3/uL (4.8-10.8)
[2023-01-28 12:22] LABS: Estimated Average Glucose 123 mg/dL; Hemoglobin A1C 149.9272 umol/L; Hemoglobin A1c % 5.9 % (<6.0)
[2023-01-28 13:07] LABS: Alanine Aminotransferase 136 U/L (0-31); Albumin Level 4.8 g/dL (3.5-5.0); Alkaline Phosphatase 84 U/L (39-117); Anion Gap 12 (12-20); Aspartate Amino Transferase 88 U/L (5-31); Bilirubin Total 0.8 mg/dL (0.0-1.0); Blood Urea Nitrogen 10 mg/dL (9-16); C Reactive Protein 1.74 mg/dL (< or = 0.50); Calcium 10.3 mg/dL (8.4-10.2); Carbon Dioxide 25 mmol/L (22-29); Chloride 105 mmol/L (96-108); Cholesterol 195 mg/dL (<200); Estimated Glomerular Filt Rate > 60; Ferritin 300 ng/mL (10-122); Glucose Random 130 mg/dL (60-115); HDL Cholesterol 32 mg/dL (>40); Insulin 30 uU/mL (2-29); Iron 66 mcg/dL (30-160); LDL Cholesterol Calculated 126 mg/dL (<100); Percent Iron Saturation 20 % (15-50); Potassium 4.1 mmol/L (3.3-5.1); Sodium 138 mmol/L (135-145); TSH reflex Free T4 0.91 uIU/mL (0.32-4.0); Total Iron Binding Capacity 330 mcg/dL (228-428); Total Protein 8.4 g/dL (6.5-8.0); Triglycerides 189 mg/dL (<150); Unsaturated Iron Binding 264 ug/dL; Vitamin D 25-OH Total 21.4 ng/mL (>30)
[2023-01-28 13:18] LABS: Vitamin B12 711 pg/mL (200-900)
[2023-01-30 15:54] LABS: Calcium (PTHI) 10.3 mg/dL (8.6-10.2); PTHI 22 pg/mL (16-77)
[2023-01-30 17:42] LABS: Zinc 85 mcg/dL (60-130)
[2023-01-31 10:51] LABS: H Pylori Breath Test Negative (Negative)
[2023-01-31 16:32] LABS: Vitamin A 50 mcg/dL (38-98)
[2023-02-02 10:28] LABS: Vitamin B1 9 nmol/L (8-30)
== END 2023-01-28 10:49 | disposition home or self-care (01) ==
LOC: HO.XRAY 10:48
PROVIDERS: PCP Nurse Practitioner Family; Visit Provider Surgery
DX: E66.01 Morbid (severe) obesity due to excess calories (principal); Z11.0 Encounter for screening for intestinal infectious diseases
CPT/HCPCS: 36415; 71046; 80053; 80061; 82306; 82607; 82728; 82746; 83013; 83036; 83525; 83540; 83970; 84425; 84443; 84590; 84630; 85025; 86140; 99211

== ENCOUNTER 2023-02-03 18:00 | Emergency (ER) | payer OTHER, SELFPAY ==
--- NOTE | ~2023-02-03 | XR_ITS ---
EXAMINATION: XR CHEST CLINICAL INFORMATION: Cough. COMPARISON: Chest done on 01/28/2023. TECHNIQUE: 2 views of the chest were obtained. FINDINGS: No significant abnormality is noted involving the heart, lungs, mediastinum, bony thorax or soft tissues. XR/XR chest 2V IMPRESSION: Unremarkable examination.
[2023-02-03 18:43] VITALS: BP 151/80; PULSE 100; RESP 16; TEMP 37.4; O2SAT 98; BMI 40.7
--- NOTE | 2023-02-03 19:44 | ED.GENADULT ---
HPI - General Adult General Chief complaint: Fever Stated complaint: fever,weakness Time Seen by Provider: 02/03/23 19:34 Source: patient, RN notes reviewed and old records reviewed Mode of arrival: ambulatory History of Present Illness HPI narrative: 22-year-old female with a past medical history of anxiety, obesity, presenting to the ED complaining of subjective fever, dry cough, SOB, myalgias, chills, nausea/vomiting x yesterday. Admits to sick Aunt with similar symptoms. Denies abdominal pain, ear pain, sore throat, chest pain, recent travel, sick contacts. Admits to taking Motrin w/some relief Onset (ago): hour(s) Related Data Previous Rx's Medication Instructions Recorded norethindrone (contraceptive) 0.35 0.35 mg PO DAILY #84 tabs 01/04/23 mg tablet acetaminophen 500 mg tablet 500 mg PO Q6H PRN fever or pain 02/03/23 (Tylenol Extra Strength) #14 tabs ibuprofen 400 mg tablet 400 mg PO Q6H PRN fever or pain 02/03/23 #20 tabs oseltamivir 75 mg capsule (Tamiflu) 75 mg PO Q12H 5 days #10 caps 02/03/23 Allergies Allergy/AdvReac Type Severity Reaction Status Date / Time kiwi [KIWI] Allergy Unknown SWOLLEN Verified 02/03/23 18:43 TOUNGE/HIVES Review of Systems Review of Systems: Constitutional: +subj Fever, + Chills ENT/Mouth: No Ear Pain, + Nasal Congestion, No Sinus Pain, No Hoarseness, No sore throat,+Rhinorrhea, No Swallowing Difficulty Cardiovascular: No Chest Pain, + SOB Respiratory: + Cough, No Sputum, No Wheezing Gastrointestinal: + Nausea, + Vomiting, No Diarrhea, No Constipation, No Abdominal pain Genitourinary: No Dysuria, No Urinary Frequency, No Hematuria Musculoskeletal: No joint pain, + Myalgias, No Joint Swelling Skin: No Skin Lesions, No rash Neuro: No Weakness, Yes all other systems are reviewed and are negative Constitutional: Constitutional: Reports as per HPI [facility] Past Medical History Attestation statement: The following information was validated with the patient. Source: old records reviewed Medical History Morbid obesity Elevated liver enzymes Physical exam Shortness of breath Arcuate uterus control counseling Elevated blood pressure reading Obesity, morbid, BMI 40.0-49.9 Breast mass, right URI (upper respiratory infection) Pharyngitis Abnormal laboratory test High risk sexual behavior in adolescent Amenorrhea, secondary Anxiety No known health problems Surgical History No pertinent past surgical history Family History Family History Mother Anxiety Father Stomach cancer Colon cancer Social History Alcohol intake: current Alcohol intake frequency: holidays/special occasions only Patient Tobacco Use Status: Current someday Tobacco user Smoked in Last 30 Days: No e-Cigarette/Vaping Use: Never Used Use of substances other than those prescribed or required for medical reasons: No Substance Use Type: Marijuana Advance Directives: No Advance Directives Information Provided: No Patient : No Cognitive needs: No Hearing needs: No Vision needs: No Physical Exam ED Vital Signs: Vital Signs - 24 hr 02/03/23 18:43 02/03/23 20:32 Temperature 99.4 F 101.7 F H Pulse Rate 100 Respiratory Rate 16 Blood Pressure 151/80 H Pulse Oximetry 98 Oxygen Delivery Method Room Air BMI result Body Mass Index 40.7 Const General: cooperative, healthy appearing and no acute distress Orientation/consciousness: patient oriented x3 Limitations: no limitations HENMT Head: Yes normal to inspection and Yes atraumatic Ears: hearing grossly normal bilaterally, external ears normal, TM's normal bilaterally and mastoids normal General nose exam: Normal external nose present and Nasal discharge present Face and sinus: Yes normal facial exam Mouth: Normal oral and palatal mucosa present Throat: Yes posterior oropharynx normal, Yes tonsils normal, Yes uvula midline, No uvula laterally displaced and No uvular edema Eyes General: appearance normal, both eyes and all related structures EOM: EOMs intact bilaterally Neck Neck: Yes normal visual inspection and Yes no meningeal signs Resp Effort & Inspection: normal respiratory effort and no respiratory distress Auscultation: clear to auscultation bilaterally, no crackles, no rales, no rhonchi and no wheezes Cardio Rate: regular rate Heart sounds: S1 normal heart sound present and S2 normal heart sound present GI Inspection: Yes normal to inspection Palpation (GI): Soft to palpation and nontender Skin Rashes: no rashes Wounds: no wounds Neuro General: patient oriented x3, gait normal, tone normal, moves all extremities and no meningeal signs Cranial nerves: Yes CN's II-XII intact bilaterally Gait exam (Neuro): Normal gait present Extrem General: Yes normal to inspection Course Course Course Narrative: -influenza A positive. RSV/COVID and strep negative >> patient in the window for Tamiflu, is interested. -2042--febrile 101.7 > PO Motrin & Tylenol given -2099--ED care transferred to DIANE Nieto pending temp recheck & CXR, anticipated discharge Results discussed with patient including worrisome signs and symptoms and strict return precautions, and when to return to the emergency department. They verbalized understanding and feel safe for discharge at this time. Medications Administered Discontinued Medications Generic Name Dose Route Start Last Admin Trade Name Freq PRN Reason Stop Dose Admin Acetaminophen 650 mg 02/03/23 20:33 02/03/23 20:37 Acetaminophen 325 Mg Tablet PO 02/03/23 20:34 650 mg ONCE ONE Administration Ibuprofen 600 mg 02/03/23 20:08 02/03/23 20:17 Ibuprofen 600 Mg Tablet PO 02/03/23 20:09 600 mg ONCE ONE Administration Medical Decision Making Medical Decision Making [facility] Narrative: 22-year-old female with a past medical history of anxiety, obesity, presenting to the ED complaining of subjective fever, dry cough, SOB, myalgias, chills, nausea/vomiting x yesterday. On exam vital signs stable, low-grade temp 99.4 degrees, NAD, nontoxic appearing, physical exam unremarkable. Lungs CTA, TMs WNL, or pharynx WNL, uvula midline. Concern for viral illness vs bronchitis/pneumonia. Low suspicion for strep pharyngitis. No evidence of ERADICATOR/retropharyngeal abscess plan: Viral testing, CXR Please refer to course for remaining clinical decision making, interpretation of labs/imaging results, and discussions with consultants and/or family members. Differential Diagnosis Differential Diagnoses: The differential diagnosis associated with the presentation includes As above Lab Data [facility] Lab Attestation statement: I reviewed the patient's lab results. Labs: Lab Results 02/03/23 Range/Units 19:07 Influenza Type A (PCR) POSITIVE A (Negative) Influenza Type B (PCR) NEGATIVE (Negative) RSV RNA Qual (PCR) NEGATIVE (Negative) SARS-CoV-2 RNA (RT-PCR) NEGATIVE (Negative) S. pyogenes GrpA GINO Negative (Negative) Radiology Impression Discussion of test interpretation with radiology: I have reviewed the radiologist's reading. External Record Review External record reviewed: Inpatient record, Office record, Outpatient record, Prior outpatient labs, Prior outpatient radiology, Primary care record and Outside ED record Tests considered The following testing was considered but not selected: As above Prescription Management I considered prescription management with: Pain Medication Discharge Plan Discharge Clinical Impression: Influenza A Patient Disposition: Home, Self-Care Instructions: Influenza (DC) Additional Instructions: You have the flu. Your contagious. Take Tylenol and Motrin at home for body aches/fever Rest Stay hydrated If fevers unresolved with medications, constant or worsening chest pain/shortness of breath, you are unable to eat or drink return to the ED Follow-up with her doctor Prescriptions: New ibuprofen 400 mg tablet 400 mg PO Q6H PRN (Reason: fever or pain) Qty: 20 0RF oseltamivir [Tamiflu] 75 mg capsule 75 mg PO Q12H 5 Days Qty: 10 0RF acetaminophen [Tylenol Extra Strength] 500 mg tablet 500 mg PO Q6H PRN (Reason: fever or pain) Qty: 14 0RF No Action norethindrone (contraceptive) 0.35 mg tablet 0.35 mg PO DAILY Qty: 84 3RF Rx Instructions: She can start the pills a couple of days in to the withdrawal bleed from the Provera, 1 pill every day Referrals: Pradip Headley, CHYRON OPERATOR-BC [Primary Care Provider] - 1 week Stand Alone Forms: Work/School Release
[2023-02-03 19:50] LABS: Influenza A PCR POSITIVE (Negative); Influenza B PCR NEGATIVE (Negative); Resp Syncy Virus RNA Qual PCR NEGATIVE (Negative); SARS COV2 PCR INHOUSE NEGATIVE (Negative)
[2023-02-03 20:00] LABS: IDNOW Serial# 58CA691E; Strep A Nucleic Acid Negative (Negative)
--- NOTE | 2023-02-03 20:05 | PC.NURSE ---
pt to xray at this time.
[2023-02-03] MEDS: Ibuprofen 600 MG TABLET PO (20:17)
--- NOTE | 2023-02-03 20:20 | PC.NURSE ---
medication administered per provider order.
[2023-02-03 20:32] VITALS: TEMP 38.7
[2023-02-03] MEDS: Acetaminophen 325 MG TABLET 650 MG PO (20:37)
--- NOTE | 2023-02-03 20:40 | PC.NURSE ---
pt temp increased. provider aware of fever. pt medicated per provider order. will reassess.
[2023-02-03 21:55] VITALS: TEMP 37.4
== END 2023-02-03 21:57 | disposition home or self-care (01) ==
PROVIDERS: Emergency Provider Internal Medicine; PCP Nurse Practitioner Family
DX: J10.1 Influenza due to other identified influenza virus with other respiratory manifestations (principal); R50.9 Fever, unspecified; R53.1 Weakness; R05.9 Cough, unspecified; R06.02 Shortness of breath; M79.10 Myalgia, unspecified site; R11.2 Nausea with vomiting, unspecified; F17.200 Nicotine dependence, unspecified, uncomplicated; Z20.822 Contact with and (suspected) exposure to COVID-19; Z20.828 Contact with and (suspected) exposure to other viral communicable diseases; Z71.6 Tobacco abuse counseling; Z79.899 Other long term (current) drug therapy
CPT/HCPCS: 0241U; 71046; 87651; 99283; 99284

== ENCOUNTER 2023-02-06 08:53 | Outpatient (AMB) | payer OTHER, SELFPAY ==
[2023-02-06 10:42] VITALS: BMI 44.5
--- NOTE | 2023-02-06 10:42 | A.OFFVIS_ITS ---
Intake VS Expanded 02/06/23 10:42 Height 5 ft 3 in Weight 251 lb 2 oz BMI 44.5 Body Fat % 57 Body Fat Mass 143.1 Fat Free Mass 108 Visceral Fat Rating 25 Body Water % 29.4 Body Water Mass 73.8 Basal Metabolic Rate/Score 1,428 Intake Visit Reasons: TV Follow Up SWL - Allergies kiwi [KIWI] Allergy (Unknown, Verified 02/03/23 18:43) SWOLLEN TOUNGE/HIVES HPI TV Follow Up SWL - 1ST HPI Details Start time: 10.30am, End time: 10.50am ?I spent 15 minutes speaking with the patient on the phone plus an additional 5 minutes reviewing and updating records for a total of 20 minutes HPI Comments History of Present Illness Details Waiting to get her food stamps so she can purchase the protein shakes and bars Will get a Gym membership after her next paycheck in February She is very motivated despite the challenges she is facing [facility] Medical History Morbid obesity Elevated liver enzymes Physical exam Shortness of breath Arcuate uterus control counseling Elevated blood pressure reading Obesity, morbid, BMI 40.0-49.9 Breast mass, right URI (upper respiratory infection) Pharyngitis Abnormal laboratory test High risk sexual behavior in adolescent Amenorrhea, secondary Anxiety No known health problems Surgical History No pertinent past surgical history Family History Mother Anxiety Father Stomach cancer Colon cancer Social History Alcohol intake: current Alcohol intake frequency: holidays/special occasions only Patient Tobacco Use Status: Current someday Tobacco user e-Cigarette/Vaping Use: Never Used Substance Use Type: Marijuana Cognitive needs: No Hearing needs: No Vision needs: No Female Reproductive History Menstrual Age of Menarche: 12 Assessment & Plan Assessment & Plan (1) Morbid obesity: Code(s): E66.01 - Morbid (severe) obesity due to excess calories Plan: 1. Please send me pictures of the shakes and bars that you will find at [facility] that can be purchased with food stamps so I can make suggestions and create a new nutritional plan for you once we know which products you will use. 2. When you get your Gym membership please start treadmill with an incline of 2.0 and speed of 3.0. Increase incline by 1 every 3 min to a max incline of 8.0, stay 3min at 8.0 and then return to 2.0 and repeat same steps until calorie goal is met. Goal is to burn 2000 calories per week on exercise, which means either 300 calories daily, or 400 calories 5 days per week, or 500 calories 4 days per week, or 650 calories 3 days per week. 3. Send me weight measurements weekly on Mondays Telehealth Telehealth Location of provider rendering services: practice address Location of patient: address on file Patient Identification confirmed using: Name, : Yes Telehealth method: voice only Patient verbally consented to treatment: Yes Patient verbally consented to billing insurance company: Yes Patient informed of any privacy concerns related to visit: Yes Minutes spent on Phone/Video with Pt.: 20 Coding Level of Care Code Tele Est Pt Level 3 (84020) Diagnoses Morbid obesity E66.01 Time Spent (min) 20
== END 2023-02-06 10:51 | disposition home or self-care (01) ==
LOC: HO.HBS 08:53
PROVIDERS: PCP Nurse Practitioner Family; Visit Provider Surgery
DX: E66.01 Morbid (severe) obesity due to excess calories (principal)
CPT/HCPCS: 99213

== ENCOUNTER → 2023-02-06 08:53 | Outpatient (BNVA) | payer OTHER, SELFPAY | PROVIDERS: PCP Nurse Practitioner Family; Visit Provider Surgery ==

== ENCOUNTER 2023-02-07 15:30 | Emergency (ER) | payer OTHER, SELFPAY ==
--- NOTE | ~2023-02-07 | XR_ITS ---
EXAMINATION: XR CHEST CLINICAL INFORMATION: Shortness of breath. COMPARISON: Chest radiograph 02/03/2023. TECHNIQUE: 2 views of the chest were obtained. FINDINGS: Normal appearance of the cardiomediastinal silhouette. No focal airspace opacities, pleural effusion or pneumothorax. No acute osseous findings. Visualized upper abdomen is within normal limits. XR/XR chest 2V IMPRESSION: No acute cardiopulmonary findings.
[2023-02-07 16:07] VITALS: BP 142/95; PULSE 95; RESP 17; TEMP 37.6; O2SAT 98; BMI 44.4
--- NOTE | 2023-02-07 16:09 | ED_ITS ---
HPI - General Adult General Chief complaint: General Medical Stated complaint: lips turning purple Time Seen by Provider: 02/07/23 18:09 Source: patient Mode of arrival: ambulatory History of Present Illness HPI narrative: Pt is a 22yo female who presents to the ED with the flu. Pt states she was diagnosed with the flu 2 days ago and has been experiencing sx for 4 days. She reports continued coughing, feeling like there is liquid in her chest that she can't cough up, worse at night when lying down. Pt states that today her lips turned purple on multiple occasions and her skin was pale. She was prescribed Tamiflu 2 days ago but only took it once because it exacerbated her sx. Related Data Previous Rx's Medication Instructions Recorded norethindrone (contraceptive) 0.35 0.35 mg PO DAILY #84 tabs 01/04/23 mg tablet acetaminophen 500 mg tablet 500 mg PO Q6H PRN fever or pain 02/03/23 (Tylenol Extra Strength) #14 tabs ibuprofen 400 mg tablet 400 mg PO Q6H PRN fever or pain 02/03/23 #20 tabs oseltamivir 75 mg capsule (Tamiflu) 75 mg PO Q12H 5 days #10 caps 02/03/23 cholecalciferol (vitamin D3) 125 125 mcg PO DAILY #30 caps 02/04/23 mcg (5,000 unit) capsule albuterol sulfate 90 mcg/actuation 2 puff inhalation Q4-6H PRN 02/07/23 aerosol inhaler shortness of breath or wheezing #6.7 grams benzonatate 200 mg capsule 200 mg PO TID PRN cough #20 caps 02/07/23 Allergies Allergy/AdvReac Type Severity Reaction Status Date / Time kiwi [KIWI] Allergy Unknown SWOLLEN Verified 02/03/23 18:43 TOUNGE/HIVES Review of Systems Constitutional: Constitutional: Reports chills, Reports difficulty sleeping ( due to coughing), Reports fever(s), Denies headache(s) and Reports malaise Eyes: Eyes: Denies change in vision ENT: Denies dizziness and Denies headache(s) Cardiovascular: Cardiovascular: Denies chest pain and Denies dyspnea Respiratory: Respiratory: Reports change in phlegm color (westfall), Reports chest congestion, Reports cough, Denies hemoptysis and Denies dyspnea Gastrointestinal: Gastrointestinal: Denies abdominal pain, Denies constipation, Denies diarrhea, Reports nausea and Reports vomiting Integumentary/Breasts: Skin/Breast: Reports change in pigmentation Neurologic: Denies dizziness and Denies headache(s) [facility] Past Medical History Medical History Morbid obesity Elevated liver enzymes Physical exam Shortness of breath Arcuate uterus control counseling Elevated blood pressure reading Obesity, morbid, BMI 40.0-49.9 Breast mass, right URI (upper respiratory infection) Pharyngitis Abnormal laboratory test High risk sexual behavior in adolescent Amenorrhea, secondary Anxiety No known health problems Surgical History No pertinent past surgical history Family History Family History Mother Anxiety Father Stomach cancer Colon cancer Social History Social History Alcohol intake: current Alcohol intake frequency: holidays/special occasions only Patient Tobacco Use Status: Current someday Tobacco user Smoked in Last 30 Days: No e-Cigarette/Vaping Use: Never Used Use of substances other than those prescribed or required for medical reasons: Yes Substance Use Type: Marijuana Substance Use Frequency: Socially Last Used Substance: Weeks (ago) Any prior treatment program specific to substance use: No Advance Directives: No Advance Directives Information Provided: No Patient : No Cognitive needs: No Hearing needs: No Vision needs: No Physical Exam ED Vital Signs: Vital Signs - 24 hr 02/07/23 16:07 02/07/23 18:09 Temperature 99.7 F 98.9 F Pulse Rate 95 76 Respiratory Rate 17 18 Blood Pressure 142/95 H 136/86 Pulse Oximetry 98 100 Oxygen Delivery Method Room Air Room Air BMI result Body Mass Index 44.4 Const General: cooperative, no acute distress, alert and awake Orientation/consciousness: patient oriented x3 HENMT Head: Yes normocephalic and Yes atraumatic Ears: hearing grossly normal bilaterally General nose exam: Normal external nose present Mouth: lip normal (no cyanosis) Eyes General: appearance normal, both eyes and all related structures Resp Effort & Inspection: normal respiratory effort and able to speak in complete sentences Auscultation: clear to auscultation bilaterally Cardio Rate: regular rate Rhythm: regular rhythm Heart sounds: S1 normal heart sound present and S2 normal heart sound present Skin General skin exam: no rashes or lesions noted Neuro General: patient oriented x3 Course Course Course Narrative: This is a rapid medical exam: Additional HPI, ROS, PE not included below will be deferred to primary provider. Patient is a 22-year-old female with history of asthma presenting to the emergency department with complaint of ongoing fever and shortness of breath. Was seen here on 02/03 and started on Tamiflu, advised to alternate Tylenol and ibuprofen. States temp is still around 100 even with alternating medications. States she developed shortness of breath yesterday and today felt as though her lips were blue. No discoloration to lips noted in triage, O2 98% on room air. Plan: x-ray Medical Decision Making Medical Decision Making [facility] Narrative: 22 in female presents for evaluation of multiple complaints. She complains of her skin and lips turning blue but there are no objective findings of this. The patient shows a picture of her hands when she fell to the her skin with discolored and there still appears to be no abnormal skin color or color change. the patient appears quite anxious regarding her influenza diagnosis. Vital signs within normal limits. Will treat the patient symptomatically, she was reassured Differential Diagnosis Differential Diagnoses: The differential diagnosis associated with the presentation includes (flu, COVID, hypothermia, viral bronchitis, reaction to medication) Independent Interpretation I performed an independent interpretation of an: Plain X-Ray (No infiltrate, effusions or pneumothorax) Radiology Impression Discussion of test interpretation with radiology: I have reviewed the radiologist's reading. (No acute cardiopulmonary findings) Discharge Plan Discharge Clinical Impression: Influenza A Patient Disposition: Home, Self-Care Instructions: Influenza (ED) Additional Instructions: I recommend that you stop taking the Tamiflu You may use Sudafed, Aileen D, or Claritin-D for congestion Use Tessalon Perles as needed for coughing Follow-up with your primary doctor Prescriptions: New benzonatate 200 mg capsule 200 mg PO TID PRN (Reason: cough) Qty: 20 0RF albuterol sulfate 90 mcg/actuation HFA aerosol inhaler 2 puff inhalation Q4-6H PRN (Reason: shortness of breath or wheezing) Qty: 6.7 0RF No Action cholecalciferol (vitamin D3) 125 mcg (5,000 unit) capsule 125 mcg PO DAILY Qty: 30 2RF ibuprofen 400 mg tablet 400 mg PO Q6H PRN (Reason: fever or pain) Qty: 20 0RF oseltamivir [Tamiflu] 75 mg capsule 75 mg PO Q12H 5 Days Qty: 10 0RF acetaminophen [Tylenol Extra Strength] 500 mg tablet 500 mg PO Q6H PRN (Reason: fever or pain) Qty: 14 0RF norethindrone (contraceptive) 0.35 mg tablet 0.35 mg PO DAILY Qty: 84 3RF Rx Instructions: She can start the pills a couple of days in to the withdrawal bleed from the Provera, 1 pill every day Interventions: ED Discharge Assessment Last Done: 02/07/23 19:00 Discharge Date/Time: 02/07/23 19:01
[2023-02-07 18:09] VITALS: BP 136/86; PULSE 76; RESP 18; TEMP 37.2; O2SAT 100
--- NOTE | 2023-02-07 18:14 | PC.NURSE ---
pt is a known asthmatic and cannot find her inhaler for at least 3 months. at this present time the patient does not have blue lips
== END 2023-02-07 19:01 | disposition home or self-care (01) ==
PROVIDERS: Emergency Provider Emergency Medicine; PCP Nurse Practitioner Family
DX: J10.1 Influenza due to other identified influenza virus with other respiratory manifestations (principal); Z79.899 Other long term (current) drug therapy
CPT/HCPCS: 71046; 99283; 99284

== ENCOUNTER 2023-02-09 04:18 | Emergency (ER) | payer OTHER, SELFPAY ==
[2023-02-09 04:36] VITALS: BP 158/100; PULSE 102; O2SAT 98
[2023-02-09 04:53] VITALS: BP 143/94; PULSE 95; RESP 18; TEMP 36.5; O2SAT 98; BMI 43.7
--- NOTE | 2023-02-09 05:01 | ED.PSYCH ---
HPI - Psych General Chief Complaint: Psychiatric Symptoms Stated Complaint: SI Time Seen by Provider: 02/09/23 04:40 Source: patient Mode of arrival: ambulatory History of Present Illness HPI Narrative: Patient history of depression since age 11 off medication for last 8 years by her psychiatrist as she was doing good today she had a wound that was from her apartment felt very bad felt suicidal at but after turned to the EMS felt much better called 911 for crisis phone number. On arrival patient denied any suicidal ideation or homicidal feeling does have a gun in the house which is locked box never attempted any suicide knows that she will call 911 if she feels again Related Data Previous Rx's Medication Instructions Recorded norethindrone (contraceptive) 0.35 0.35 mg PO DAILY #84 tabs 01/04/23 mg tablet acetaminophen 500 mg tablet 500 mg PO Q6H PRN fever or pain 02/03/23 (Tylenol Extra Strength) #14 tabs ibuprofen 400 mg tablet 400 mg PO Q6H PRN fever or pain 02/03/23 #20 tabs oseltamivir 75 mg capsule (Tamiflu) 75 mg PO Q12H 5 days #10 caps 02/03/23 cholecalciferol (vitamin D3) 125 125 mcg PO DAILY #30 caps 02/04/23 mcg (5,000 unit) capsule albuterol sulfate 90 mcg/actuation 2 puff inhalation Q4-6H PRN 02/07/23 aerosol inhaler shortness of breath or wheezing #6.7 grams benzonatate 200 mg capsule 200 mg PO TID PRN cough #20 caps 02/07/23 Allergies Allergy/AdvReac Type Severity Reaction Status Date / Time kiwi [KIWI] Allergy Unknown SWOLLEN Verified 02/09/23 04:52 TOUNGE/HIVES Review of Systems Review of Systems: Yes all other systems are reviewed and are negative PMFSH Past Medical History Medical History Morbid obesity Elevated liver enzymes Physical exam Shortness of breath Arcuate uterus control counseling Elevated blood pressure reading Obesity, morbid, BMI 40.0-49.9 Breast mass, right URI (upper respiratory infection) Pharyngitis Abnormal laboratory test High risk sexual behavior in adolescent Amenorrhea, secondary Anxiety No known health problems Surgical History No pertinent past surgical history Family History Family History Mother Anxiety Father Stomach cancer Colon cancer Social History Social History Alcohol intake: current Alcohol intake frequency: holidays/special occasions only Patient Tobacco Use Status: Current someday Tobacco user e-Cigarette/Vaping Use: Never Used Substance Use Type: Marijuana Cognitive needs: No Hearing needs: No Vision needs: No Physical Exam Vital Signs: Vital Signs: Last Vital Signs Temp 97.7 F 02/09/23 04:53 Pulse 95 02/09/23 04:53 Resp 18 02/09/23 04:53 BP 143/94 H 02/09/23 04:53 Pulse Ox 98 02/09/23 04:53 O2 Del Method Room Air 02/09/23 04:53 BMI result Body Mass Index 43.7 Appearance: Alert. Oriented X3. No acute distress. Eyes: PERRLA, No Nystagmus ENT: Pharynx normal. Oral Mucosa moist Neck: Normal inspection. Neck supple. CVS: Normal heart rate and rhythm. Pulses normal. Respiratory: No respiratory distress. Equal air entry bilateral, no wheezing/rales/rhonchi Abdomen: Soft and nontender. Bowel sounds are present, no mass palpable, no CVA tenderness Skin: Skin warm and dry. Normal skin color. Normal skin turgor. Extremities: No lower extremity edema. No calf tenderness psych: Mood stable denies any depression no suicidal or homicidal feeling no hallucination delusion Neuro: Oriented X 3. No motor deficit. No sensory deficit.No cerebellar signs , cranial nerves II-XII intact Medical Decision Making Medical Decision Making MDM Narrative: Patient feels much better now refusing to change or give her phone feels stable to go home and will call crisis his needs any help denied multiple times suicidal ideation to multiple providers in the ER does not want to stay longer in the ER will discharge Discharge Plan Discharge Clinical Impression: Anxiety, Feeling suicidal Patient Disposition: Home, Self-Care Instructions: Generalized Anxiety Disorder (ED), Suicide Prevention (ED) Additional Instructions: Follow-up with your PCP/therapy further evaluation If you do not feel safe come back to the hospital Prescriptions: No Action cholecalciferol (vitamin D3) 125 mcg (5,000 unit) capsule 125 mcg PO DAILY Qty: 30 2RF ibuprofen 400 mg tablet 400 mg PO Q6H PRN (Reason: fever or pain) Qty: 20 0RF oseltamivir [Tamiflu] 75 mg capsule 75 mg PO Q12H 5 Days Qty: 10 0RF acetaminophen [Tylenol Extra Strength] 500 mg tablet 500 mg PO Q6H PRN (Reason: fever or pain) Qty: 14 0RF benzonatate 200 mg capsule 200 mg PO TID PRN (Reason: cough) Qty: 20 0RF albuterol sulfate 90 mcg/actuation HFA aerosol inhaler 2 puff inhalation Q4-6H PRN (Reason: shortness of breath or wheezing) Qty: 6.7 0RF norethindrone (contraceptive) 0.35 mg tablet 0.35 mg PO DAILY Qty: 84 3RF Rx Instructions: She can start the pills a couple of days in to the withdrawal bleed from the Provera, 1 pill every day
== END 2023-02-09 05:16 | disposition home or self-care (01) ==
LOC: HO.ED 05:12
PROVIDERS: Emergency Provider Internal Medicine
DX: R45.851 Suicidal ideations (principal); F41.9 Anxiety disorder, unspecified; F17.200 Nicotine dependence, unspecified, uncomplicated; F12.90 Cannabis use, unspecified, uncomplicated; Z91.51 Personal history of suicidal behavior
CPT/HCPCS: 99282; 99283

== ENCOUNTER 2023-02-12 14:57 | Emergency (ER) | payer OTHER, SELFPAY ==
[2023-02-12 15:02] VITALS: BP 154/82; PULSE 86; O2SAT 98
[2023-02-12 15:34] VITALS: BP 171/72; PULSE 102; RESP 18; TEMP 37.1; O2SAT 98; BMI 45.2
--- NOTE | 2023-02-12 15:34 | ED.GENADULT ---
HPI - General Adult General Chief complaint: General Medical Stated complaint: CHOKED ON LETTUCE,FEELS STILL STUCK IN THROAT Related Data Previous Rx's Medication Instructions Recorded norethindrone (contraceptive) 0.35 0.35 mg PO DAILY #84 tabs 01/04/23 mg tablet acetaminophen 500 mg tablet 500 mg PO Q6H PRN fever or pain 02/03/23 (Tylenol Extra Strength) #14 tabs ibuprofen 400 mg tablet 400 mg PO Q6H PRN fever or pain 02/03/23 #20 tabs oseltamivir 75 mg capsule (Tamiflu) 75 mg PO Q12H 5 days #10 caps 02/03/23 cholecalciferol (vitamin D3) 125 125 mcg PO DAILY #30 caps 02/04/23 mcg (5,000 unit) capsule albuterol sulfate 90 mcg/actuation 2 puff inhalation Q4-6H PRN 02/07/23 aerosol inhaler shortness of breath or wheezing #6.7 grams benzonatate 200 mg capsule 200 mg PO TID PRN cough #20 caps 02/07/23 Allergies Allergy/AdvReac Type Severity Reaction Status Date / Time kiwi [KIWI] Allergy Unknown SWOLLEN Verified 02/09/23 04:52 TOUNGE/HIVES [facility] Past Medical History Medical History Morbid obesity Elevated liver enzymes Physical exam Shortness of breath Arcuate uterus control counseling Elevated blood pressure reading Obesity, morbid, BMI 40.0-49.9 Breast mass, right URI (upper respiratory infection) Pharyngitis Abnormal laboratory test High risk sexual behavior in adolescent Amenorrhea, secondary Anxiety No known health problems Surgical History No pertinent past surgical history Family History Family History Mother Anxiety Father Stomach cancer Colon cancer Social History Social History Alcohol intake: current Alcohol intake frequency: holidays/special occasions only Patient Tobacco Use Status: Current someday Tobacco user e-Cigarette/Vaping Use: Never Used Substance Use Type: Marijuana Advance Directives: No Advance Directives Information Provided: No Cognitive needs: No Hearing needs: No Vision needs: No Physical Exam ED Vital Signs: BMI result Body Mass Index 45.2 Course Course Course Narrative: This is a rapid medical exam: Additional HPI, ROS, PE not included below will be deferred to primary provider. Patient is a 22-year-old female presenting to the emergency department with complaint of foreign body sensation to throat after choking on lettuce [employer]. States she can feel the lettuce moving down her throat as she is swallowing. Managing secretions without difficulty in triage. No difficulty breathing. Discharge Plan Discharge Clinical Impression: Foreign body sensation in throat Patient Disposition: Left W/O Completing Treatment Prescriptions: No Action cholecalciferol (vitamin D3) 125 mcg (5,000 unit) capsule 125 mcg PO DAILY Qty: 30 2RF ibuprofen 400 mg tablet 400 mg PO Q6H PRN (Reason: fever or pain) Qty: 20 0RF oseltamivir [Tamiflu] 75 mg capsule 75 mg PO Q12H 5 Days Qty: 10 0RF acetaminophen [Tylenol Extra Strength] 500 mg tablet 500 mg PO Q6H PRN (Reason: fever or pain) Qty: 14 0RF benzonatate 200 mg capsule 200 mg PO TID PRN (Reason: cough) Qty: 20 0RF albuterol sulfate 90 mcg/actuation HFA aerosol inhaler 2 puff inhalation Q4-6H PRN (Reason: shortness of breath or wheezing) Qty: 6.7 0RF norethindrone (contraceptive) 0.35 mg tablet 0.35 mg PO DAILY Qty: 84 3RF Rx Instructions: She can start the pills a couple of days in to the withdrawal bleed from the Provera, 1 pill every day Discharge Date/Time: 02/12/23 18:13
== END 2023-02-12 18:13 | disposition left against medical advice (07) ==
PROVIDERS: Emergency Provider Emergency Medicine
DX: R09.89 Other specified symptoms and signs involving the circulatory and respiratory systems (principal); Z79.899 Other long term (current) drug therapy; F17.200 Nicotine dependence, unspecified, uncomplicated; Z71.6 Tobacco abuse counseling
CPT/HCPCS: 99281

== ENCOUNTER 2023-02-14 15:50 | Outpatient (AMB) | payer OTHER, SELFPAY ==
--- NOTE | 2023-02-14 15:45 | MHC.AMNUTRGE ---
Intake Intake Visit Reasons: VIDEO Initial Nutrition SWL Allergies kiwi [KIWI] Allergy (Unknown, Verified 02/09/23 04:52) SWOLLEN TOUNGE/HIVES HPI Nutrition Presentation Reason for consult elevated BMI Unstable SDH Reports transportation, food insecurity, use of SNAP and food pantry Diet Assmnt Details Pt hasn't started her nutrition plan yet. She receives food stamps , was waiting to get aid. started doing portions - got the flu so lost her appetite and lost 11# does not have a car, making it difficult to obtain the products She reports getting very sick when taking vitamin D pill. gets red in the face with vomiting 15 minutes after taking. takes with food. she was advised to speak with Dr. Cuellar about this SWL onlnie classes: none Dietary counseling reduction Who buys your food self Who prepares/cooks your food self Meal frequency regular: dinner (very large portions non-stop ) and snacks and never: breakfast and lunch Lifestyle Emotional Eating Reports stress Food frequency Water: daily, Soda: never and Juice: daily Diagnosis Nutrition problem #1 overweight/obesity As related to (etiology) #1 excess energy intake and physical inactivity As evidenced by (sign/symptom) #1 high BMI Monitoring/Goals Nutrition problem monitoring total energy intake, level of knowledge/skill, total PRO intake and weight Outcome progress not met Learning/Education Readiness to learn good Stages of change pre-contemplation Educational materials provided Yes Most Recent Diabetes Results: Cholesterol 195 mg/dL (<200) 01/28/23 HDL Cholesterol 32 mg/dL (>40) L 01/28/23 Triglycerides 189 mg/dL (<150) H 01/28/23 Creatinine 0.74 mg/dL (0.5-1.4) 01/28/23 Blood Urea Nitrogen 10 mg/dL (9-16) 01/28/23 Sodium 138 mmol/L (135-145) 01/28/23 Potassium 4.1 mmol/L (3.3-5.1) 01/28/23 Chloride 105 mmol/L (96-108) 01/28/23 Carbon Dioxide 25 mmol/L (22-29) 01/28/23 Calcium 10.3 mg/dL (8.4-10.2) H 01/28/23 AST 88 U/L (5-31) H 01/28/23 ALT 136 U/L (0-31) H 01/28/23 Total Protein 8.4 g/dL (6.5-8.0) H 01/28/23 Albumin 4.8 g/dL (3.5-5.0) 01/28/23 [facility] Medical History Morbid obesity Elevated liver enzymes Physical exam Shortness of breath Arcuate uterus control counseling Elevated blood pressure reading Obesity, morbid, BMI 40.0-49.9 Breast mass, right URI (upper respiratory infection) Pharyngitis Abnormal laboratory test High risk sexual behavior in adolescent Amenorrhea, secondary Anxiety No known health problems Surgical History No pertinent past surgical history Family History Mother Anxiety Father Stomach cancer Colon cancer Social History Alcohol intake: current Alcohol intake frequency: holidays/special occasions only Patient Tobacco Use Status: Current someday Tobacco user e-Cigarette/Vaping Use: Never Used Substance Use Type: Marijuana Cognitive needs: No Hearing needs: No Vision needs: No Female Reproductive History Menstrual Age of Menarche: 12 Assessment & Plan Assessment & Plan (1) Morbid obesity: Code(s): E66.01 - Morbid (severe) obesity due to excess calories Plan nutrition follow up after completing classes . Telehealth Telehealth Location of provider rendering services: practice address Location of patient: address on file Patient Identification confirmed using: Name, : Yes Telehealth method: video Patient verbally consented to treatment: Yes Patient verbally consented to billing insurance company: Yes Patient informed of any privacy concerns related to visit: Yes Minutes spent on Phone/Video with Pt.: 25 Coding Level of Care Code Nutr Indiv Intake (09959) Diagnoses Morbid obesity E66.01 Time Spent (min) 25
== END 2023-02-14 16:04 | disposition home or self-care (01) ==
LOC: HO.HBS 15:51
PROVIDERS: Visit Provider Dietitian, Registered
DX: E66.01 Morbid (severe) obesity due to excess calories (principal)

== ENCOUNTER → 2023-02-14 15:50 | Outpatient (BNVA) | payer OTHER, SELFPAY | PROVIDERS: Visit Provider Dietitian, Registered | DX: E66.01 Morbid (severe) obesity due to excess calories (principal) | CPT/HCPCS: 97802 ==

== ENCOUNTER 2023-02-25 08:00 | Outpatient (AMB) | payer OTHER, SELFPAY ==
--- NOTE | 2023-02-25 13:42 | A.OFFVIS_ITS ---
Intake Intake Visit Reasons: TV Follow Up SWL Allergies kiwi [KIWI] Allergy (Unknown, Verified 02/25/23 09:53) SWOLLEN TOUNGE/HIVES HPI TV Follow Up SWL HPI Details Start time: 1.30pm, End time: 1.53pm ?I spent 18 minutes speaking with the patient on the phone plus an additional 5 minutes reviewing and updating records for a total of 23 minutes COUNTS INCLUDE 234 BEDS AT THE [facility] Medical History Morbid obesity Elevated liver enzymes Physical exam Shortness of breath Arcuate uterus control counseling Elevated blood pressure reading Obesity, morbid, BMI 40.0-49.9 Breast mass, right URI (upper respiratory infection) Pharyngitis Abnormal laboratory test High risk sexual behavior in adolescent Amenorrhea, secondary Anxiety No known health problems Surgical History No pertinent past surgical history Family History Mother Anxiety Father Stomach cancer Colon cancer Social History Housing: House Alcohol intake: current Alcohol intake frequency: holidays/special occasions only Patient Tobacco Use Status: Current someday Tobacco user e-Cigarette/Vaping Use: Never Used Substance Use Type: Marijuana Current occupational status: unemployed Cognitive needs: No Hearing needs: No Vision needs: No Female Reproductive History Menstrual Age of Menarche: 12 Assessment & Plan Assessment & Plan (1) Morbid obesity: Code(s): E66.01 - Morbid (severe) obesity due to excess calories Plan: 1. Please send me pictures of the shakes and bars that you will find at [facility] that can be purchased with food stamps so I can make suggestions and create a new nutritional plan for you once we know which products you will use. 2. When you get your Gym membership please start treadmill with an incline of 2.0 and speed of 3.0. Increase incline by 1 every 3 min to a max incline of 8.0, stay 3min at 8.0 and then return to 2.0 and repeat same steps until calorie goal is met. Goal is to burn 2000 calories per week on exercise, which means either 300 calories daily, or 400 calories 5 days per week, or 500 calories 4 days per week, or 650 calories 3 days per week. 3. Send me weight measurements today and then weekly on Mondays Telehealth Telehealth Location of provider rendering services: practice address Location of patient: address on file Patient Identification confirmed using: Name, : Yes Telehealth method: voice only Patient verbally consented to treatment: Yes Patient verbally consented to billing insurance company: Yes Patient informed of any privacy concerns related to visit: Yes Minutes spent on Phone/Video with Pt.: 23 Coding Level of Care Code Tele Est Pt Level 3 (40987) Diagnoses Morbid obesity E66.01 Time Spent (min) 23
== END 2023-02-25 13:54 | disposition home or self-care (01) ==
PROVIDERS: PCP Nurse Practitioner Family; Visit Provider Surgery
DX: E66.01 Morbid (severe) obesity due to excess calories (principal)
CPT/HCPCS: 99213

== ENCOUNTER 2023-02-25 09:27 | Outpatient (AMB) | payer OTHER, SELFPAY ==
--- NOTE | 2023-02-25 09:31 | A.OFFPC_ITS ---
Vital Signs 02/25/23 09:33 Height 5 ft 3 in Weight 260 lb BMI 46.1 BP 118/80 Blood Pressure Location Lt brachial Position Sitting Pulse 97 Pulse Source Pulse Oximeter Pulse Oximetry (%) 97 Oxygen Delivery Method Room Air Intake Visit Reasons: Followup cough Intake Note: Patient here colin follow up after having the Flu. Allergies kiwi [KIWI] Allergy (Unknown, Verified 02/25/23 09:53) SWOLLEN TOUNGE/HIVES Medication List - Last Reconciled 02/25/23 by TON aMta acetaminophen (Tylenol Extra Strength) 500 mg PO Q6H PRN albuterol sulfate 90 mcg/actuation 2 puffs inhalation Q4-6H PRN cholecalciferol (vitamin D3) 125 mcg PO DAILY ibuprofen 400 mg PO Q6H PRN norethindrone (contraceptive) 0.35 mg PO DAILY Tobacco use date assessed: 12/05/22 Dental Screening Dental Screen Date: 02/25/23 Did you have a dental visit in the last 12 months?: Yes Did you have a dental problem in the last 6 months where you did not have access to dental care?: No Was dental information given to patient?: Patient has dentist HPI Followup cough HPI Details Pt was seen in the ER on 02/03 c/o fever, chills, myalgias, cough, and shortness of breath. Pt tested positive for influenza A. She was given tamiflu. Pt reports ongoing cough but states this is improving. Explained to pt that this will last longer than other symptoms. Denies fever, chills, and shortness of breath. [facility] Medical History Morbid obesity Elevated liver enzymes Physical exam Shortness of breath Arcuate uterus control counseling Elevated blood pressure reading Obesity, morbid, BMI 40.0-49.9 Breast mass, right URI (upper respiratory infection) Pharyngitis Abnormal laboratory test High risk sexual behavior in adolescent Amenorrhea, secondary Anxiety No known health problems Surgical History No pertinent past surgical history Family History Mother Anxiety Father Stomach cancer Colon cancer Social History Housing: House Alcohol intake: current Alcohol intake frequency: holidays/special occasions only Patient Tobacco Use Status: Current someday Tobacco user e-Cigarette/Vaping Use: Never Used Substance Use Type: Marijuana Current occupational status: unemployed Cognitive needs: No Hearing needs: No Vision needs: No Female Reproductive History Menstrual Age of Menarche: 12 Questionnaire Thrive Questionnaire Date Thrive assessed: 12/05/22 NEGRO-7 AMB Questionnaire NEGRO-7 Date NEGRO - 7 assessed: 12/05/22 Source: Developed by Drs. Felice Velasquez, Jennifer Braga, Abram Ramos and colleagues, with an educational crista from [employer]. Review of Systems Const Reports as per HPI Physical exam (Primary Care) Vital Signs: Last Vital Signs Pulse 97 02/25/23 09:33 BP 118/80 02/25/23 09:33 Pulse Ox 97 02/25/23 09:33 Oxygen Delivery Method Room Air 02/25/23 09:33 BMI result Body Mass Index 46.1 Tobacco/Smoking Status: Tobacco use Status Tobacco use date assessed 12/05/22 02/25/23 09:33 Patient Tobacco Use Status Current someday Tobacco 02/25/23 09:33 e-Cigarette/Vaping Use Never Used 02/25/23 09:33 Thrive Assessment: Date of Thrive Assessment Date Thrive assessed 12/05/22 02/25/23 09:33 Const General: cooperative Nutritional Appearance: obese morbidly obese Orientation/consciousness: patient oriented x3 Resp Effort & Inspection: normal respiratory effort Auscultation: clear to auscultation bilaterally Cardio Rate: regular rate Rhythm: regular rhythm Heart sounds: S1 normal heart sound present and S2 normal heart sound present Neuro General: patient oriented x3 Psych Appearance: grossly normal Mental Status: mental status grossly normal Speech and movement: Normal speech and movement present Affect: normal affect Attitude: cooperative Thought process: Normal thought process present Thought content: Normal thought content present Insight: Good insight present (Psych) Judgement: Good judgement present (Psych) Assessment and Plan Assessment & Plan (1) Influenza A: Code(s): J10.1 - Influenza due to other identified influenza virus with other respiratory manifestations Plan The patient agreed to the use of a lpn or medical assistant for this encounter. Scribed for TON Emmanuel by Amy Sparks, lpn or medical assistant, on 02/25/2023 at 09:45 EST. Coding Level of Care Code Est Pt Level 3 (47445) Diagnoses Influenza A J10.1
[2023-02-25 09:33] VITALS: BP 118/80; PULSE 97; O2SAT 97; BMI 46.1
== END 2023-02-25 10:52 | disposition home or self-care (01) ==
PROVIDERS: PCP Nurse Practitioner Family; Visit Provider Nurse Practitioner Family
DX: J10.1 Influenza due to other identified influenza virus with other respiratory manifestations (principal)
CPT/HCPCS: 99213

== ENCOUNTER → 2023-02-26 10:54 | Outpatient (REF) | payer OTHER, SELFPAY ==
--- NOTE | 2023-02-26 10:57 | CA_ITS ---
Transthoracic Echocardiogram Patient (Last, First, Middle): Ansley Leslie, Gender: Female Date of : 2000 Age: 22 Procedure Date: 02/26/2023 Procedure Type: Transthoracic Echocardiogram Location: OP Height: 160.02 cm Weight: 112.95 kg BSA: 2.12 m2 Heart Rate: bpm Grain Wafer Machine Operator: ALEJANDRA Referring MD: Luis Cuellar MD Desk Operator: Silviano Andersen MD Symptoms: I51.7 - Cardiomegaly Study Quality: Adequate ECG Rhythm: Sinus Conclusions: - 1. Normal LVEF of 55-60% 2. Mild mitral regurgitation 3. Normal RV systolic pressure 4. No gross pericardial effusion Findings Left Ventricle Normal left ventricular size, thickness, and systolic function. The visually estimated ejection fraction is between 55-60%. Spectral Doppler is indicative of a normal filling pattern. Peak GLS is -18.4%, within normal limits. Right Ventricle Normal right ventricular cavity size and systolic function. Atria Both atria are normal in size. There is no evidence of interatrial shunt. Aortic Valve Normal aortic valve structure and function. There is no aortic valve stenosis. There is no aortic valve regurgitation. Mitral Valve There is mild anterior mitral leaflet thickening. There is mild mitral valve regurgitation. There is no mitral valve stenosis. Pulmonic Valve The pulmonic valve is likely normal. There is trace pulmonic valve regurgitation. Tricuspid Valve Normal tricuspid valve structure. There is trace tricuspid valve regurgitation. The right ventricular systolic pressure is normal. The right ventricular systolic pressure is 23 mmHg. Normal right atrial pressure. There is no evidence of pulmonary hypertension. Great Vessels All visible segments of the aorta are normal in size. The pulmonary artery was not well visualized. Venous The inferior vena cava is normal in size and collapses greater than 50% with inspiration. Pericardium/Pleural There is no evidence of pericardial effusion. Prior Study Comparison No prior study available for comparison. Measurements 2D Linear Measurements IVSd: 1.13 0.6-0.9/0.6-1.0 cm LVIDd: 4.89 3.9-5.3/4.2-5.9 cm LVIDd Index: 2.31 2.4-3.2/2.2-3.1 cm/m2 LVIDs: 3.12 2.0-3.6 cm LVPWd: 0.91 0.7-1.1 cm LA Diam: 3.90 2.7-3.8/3.0-4.0 cm LAIDs Index: 1.84 1.5-2.3 cm/m2 LV Mass: 224.82 67-162/88-224 g LV Mass Index: 106.05 43-95/49-115 g/m2 LVOT Diam: 1.90 3.0+(-)1.3 cm 2D Systolic Function EF 4C: 57.60 >55% EF 2C: 49.50 >55% EF BiP: 55.20 >55% Mitral Valve MV Pk E: 0.70 MV PK A: 0.62 MV Decel Time: 184.00 E/A: 1.10 PHT: 54.00 MVA PHT: 4.07 Decel [place]: 3.82 Aortic Valve AoV Pk Oscar: 1.58 AoV Mn Oscar: 0.99 AoV VTI: 0.33 AoV Pk Grad: 10.00 Aov Mn Grad: 5.00 THEO Cont.VTI: 1.63 LVOT LVOT Pk Oscar: 0.93 LVOT Mn Oscar: 0.68 LVOT VTI: 0.19 LVOT Pk Grad: 3.00 LVOT Mn Grad: 2.00 LVOT Diam: 1.90 LVOT Area: 2.84 Diastolic Function MV Pk E: 0.70 MV Pk A: 0.62 E/A: 1.10 Right Ventricle TAPSE (mm): 30.00 TVS' Oscar: 11.50 Tricuspid Valve TR Pk Oscar: 2.22 TR Pk Grad: 20.00 RA Press: 3.00 RVSP: 23.00 Great Vessels Aorta Sinus of Valsalva: 2.40 2.0-3.5 cm Ao Asc: 3.10 2.1-3.4 cm Updated in Other Vendor System with Status of Final Silviano Andersen MD electronically signed on 02/27/2023 8:47:37 AM with status of Final
== END ==
LOC: HO.CARD 10:54
PROVIDERS: Visit Provider Surgery
DX: I51.7 Cardiomegaly (principal)
CPT/HCPCS: 93306; 93356

== ENCOUNTER → 2023-02-26 10:57 | Outpatient (BNV) | payer OTHER, SELFPAY | PROVIDERS: Visit Provider Internal Medicine Cardiovascular Disease | DX: I51.7 Cardiomegaly (principal) | CPT/HCPCS: 93306 ==

== ENCOUNTER 2023-02-27 11:40 | Outpatient (AMB) | payer OTHER, SELFPAY ==
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
== END 2023-02-27 12:15 | disposition home or self-care (01) ==
LOC: HO.HBST 11:40
PROVIDERS: PCP Nurse Practitioner Family; Visit Provider Counselor Mental Health
DX: F41.9 Anxiety disorder, unspecified (principal); Z91.51 Personal history of suicidal behavior; Z87.828 Personal history of other (healed) physical injury and trauma; F32.A Depression, unspecified
CPT/HCPCS: 90791

== ENCOUNTER → 2023-02-27 11:40 | Outpatient (BNVA) | payer OTHER, SELFPAY | PROVIDERS: PCP Nurse Practitioner Family; Visit Provider Counselor Mental Health ==

== ENCOUNTER 2023-06-05 14:41 | Outpatient (AMB) | payer OTHER, SELFPAY ==
[2023-06-05 14:46] VITALS: BP 122/80; PULSE 88; O2SAT 97; BMI 46.1
--- NOTE | 2023-06-05 14:46 | MHC.PC.OV ---
Vital Signs 06/05/23 14:46 Height 5 ft 3 in Weight 260 lb BMI 46.1 BP 122/80 Blood Pressure Location Lt brachial Position Sitting Pulse 88 Pulse Source Pulse Oximeter Pulse Oximetry (%) 97 Oxygen Delivery Method Room Air Intake Visit Reasons: 6 Month follow up Intake Note: pt is here for 6 month follow up Last Trimmer Required: No Accompanied by: Self / Same As Patient Allergies kiwi [KIWI] Allergy (Unknown, Verified 06/05/23 17:01) SWOLLEN TOUNGE/HIVES Medication List - [facility] acetaminophen (Tylenol Extra Strength) 500 mg PO Q6H PRN albuterol sulfate 90 mcg/actuation 2 puffs inhalation Q4-6H PRN ibuprofen 400 mg PO Q6H PRN Tobacco use date assessed: 06/05/23 Dental Screening Dental Screen Date: 06/05/23 Did you have a dental visit in the last 12 months?: Yes Did you have a dental problem in the last 6 months where you did not have access to dental care?: No Was dental information given to patient?: Patient has dentist HPI 6 Month follow up HPI Details Pt c/o increased depression and anxiety. Pt questions if she has bipolar. She had a therapist but has not been contacted by them again. Will have team (Nickie) check on this and speak with pt. Denies any SI and HI. [facility] Medical History Morbid obesity Elevated liver enzymes Physical exam Shortness of breath Arcuate uterus control counseling Elevated blood pressure reading Obesity, morbid, BMI 40.0-49.9 Breast mass, right URI (upper respiratory infection) Pharyngitis Abnormal laboratory test High risk sexual behavior in adolescent Amenorrhea, secondary Anxiety No known health problems Surgical History No pertinent past surgical history Family History Mother Anxiety Father Stomach cancer Colon cancer Social History Housing: House Alcohol intake: current Alcohol intake frequency: holidays/special occasions only Patient Tobacco Use Status: Current someday Tobacco user e-Cigarette/Vaping Use: Never Used Substance Use Type: Marijuana Current occupational status: unemployed Cognitive needs: No Hearing needs: No Vision needs: No Female Reproductive History Menstrual Age of Menarche: 12 Questionnaire PHQ-9 Over the last 2 weeks, how often have you been bothered by any of the following problems? 1. Little interest or pleasure in doing things: several days 2. Feeling down, depressed, or hopeless: several days 3. Trouble falling or staying asleep, or sleeping too much: more than half the days 4. Feeling tired or having little energy: more than half the days 5. Poor appetite or overeating: several days 6. Feeling bad about yourself - or that you are a failure or have let yourself or your family down: nearly every day 7. Trouble concentrating on things, such as reading the newspaper or watching television: several days 8. Moving or speaking so slowly that other people could have noticed. Or the opposite - being so fidgety or restless that you have been moving around a lot more than usual: not at all 9. Thoughts that you would be better off or of hurting yourself in some way: not at all Total score: 11 Depression Screening Interpretation: Positive Depression Screening Follow-up: Existing condition and Community Mental Health Worker F/U Depression Screening Done: Yes 53856 - PHQ-9 Billing: Yes Source: Developed by Drs. Felice Velasquez, Jennifer Braga, Abram Ramos and colleagues, with an educational crista from [employer]. Thrive Questionnaire Date Thrive assessed: 12/05/22 AUDIT C Alcohol Use Questionnaire (AUDIT-C) 1. How often do you have a drink containing alcohol?: Monthly or less 2. How many drinks containing alcohol do you have on a typical day when you are drinking?: 3 or 4 3. How often do you have six or more drinks on one occasion?: Never Total Score: 2 Score Reviewed/Action Taken: Yes NEGRO-7 AMB Questionnaire NEGRO-7 Date NEGRO - 7 assessed: 06/05/23 Feeling nervous, anxious, or on edge: 2 = More than half the days Not being able to stop or control worryin = More than half the days Worrying too much about different things: 2 = More than half the days Trouble relaxin = Several days Being so restless that it is hard to sit still: 1 = Several days Becoming easily annoyed or irritable: 3 = Nearly every day Feeling afraid as if something awful might happen: 3 = Nearly every day Total NEGRO-7 score (0-4 normal; 5-9 mild; 10-14 moderate; 15-21 severe): 14 Source: Developed by Drs. Felice Velasquez, Jennifer Brgaa, Abram Ramos and colleagues, with an educational crista from [employer]. NEGRO-7 Assessment Billing NEGRO-7 Assessment Tool: NEGRO-7 Assessment 96778 Review of Systems Const Reports as per HPI Physical exam (Primary Care) Vital Signs: Last Vital Signs Pulse 88 06/05/23 14:46 BP 122/80 06/05/23 14:46 Pulse Ox 97 06/05/23 14:46 Oxygen Delivery Method Room Air 06/05/23 14:46 BMI result Body Mass Index 46.1 Tobacco/Smoking Status: Tobacco use Status Tobacco use date assessed 06/05/23 06/05/23 14:47 Patient Tobacco Use Status Current someday Tobacco 06/05/23 14:47 e-Cigarette/Vaping Use Never Used 06/05/23 14:47 PHQ-9: PHQ-9 Score PHQ-9: Total score 11 06/05/23 15:02 Depression Screening Interpretation: Positive Depression Screening Follow-up: Existing condition and Community Mental Health Worker F/U Thrive Assessment: Date of Thrive Assessment Date Thrive assessed 12/05/22 06/05/23 14:47 Const General: cooperative Nutritional Appearance: obese morbidly obese Orientation/consciousness: patient oriented x3 Resp Effort & Inspection: normal respiratory effort Auscultation: clear to auscultation bilaterally Cardio Rate: regular rate Rhythm: regular rhythm Heart sounds: S1 normal heart sound present and S2 normal heart sound present Neuro General: patient oriented x3 Psych Other: limited eye contact during office visit Appearance: grossly normal Mental Status: mental status grossly normal Speech and movement: Normal speech and movement present Affect: normal affect Attitude: cooperative Thought process: Normal thought process present Thought content: Normal thought content present Insight: Good insight present (Psych) Judgement: Good judgement present (Psych) Assessment and Plan Assessment & Plan (1) Anxiety: Code(s): F41.9 - Anxiety disorder, unspecified (2) Depression: Code(s): F32.A - Depression, unspecified Plan: nickie saw pt today (). she will look into getting her in for treatment (therapy and psychiatry) Plan The patient agreed to the use of a medical transcription radiology for this encounter. Scribed for DASH Emmanuel-LUZ by Amy Sparks medical transcription radiology, on 06/05/2023 at 15:05 EST. Coding Level of Care Code Est Pt Level 3 (26954) Diagnoses Anxiety F41.9 Depression F32.A Additional Codes NEGRO-7 Assessment Billing - NEGRO-7 Assessment Tool: NEGRO-7 Assessment [id number] ([id number])
== END 2023-06-05 16:00 | disposition home or self-care (01) ==
PROVIDERS: PCP Nurse Practitioner Family; Visit Provider Nurse Practitioner Family
DX: F41.9 Anxiety disorder, unspecified (principal); F32.A Depression, unspecified
CPT/HCPCS: 99213

== ENCOUNTER 2023-10-01 08:13 | Outpatient (AMB) | payer OTHER, SELFPAY ==
[2023-10-01 08:27] VITALS: BP 126/80; PULSE 84; TEMP 36.9; O2SAT 98
--- NOTE | 2023-10-01 08:27 | MHC.OFFWIV ---
Intake Vital Signs 10/01/23 08:27 Height 5 ft 3 in BP 126/80 Blood Pressure Location Lt brachial Position Sitting Pulse 84 Pulse Source Pulse Oximeter Temp 98.4 F Temp Source Oral Pulse Oximetry (%) 98 Intake Visit Reasons: EP Congestion, allergies, nasal [phone] Intake Note: pt is here for congestion and allergies with nasal drip and sore throat Patient Tobacco Use Status: Current someday Tobacco user Allergies kiwi [KIWI] Allergy (Unknown, Verified 10/01/23 08:29) SWOLLEN TOUNGE/HIVES Do you need a note to return to daycare/school/sports/work: Yes HPI HPI Comments History of Present Illness Details Patient is a 23-year-old female complaining of 4 days of productive cough with yellow sputum, feeling like her chest is tight, a sore throat, ear pain and fatigue. She states she was never diagnosed with asthma but she was prescribed an inhaler and she has been using that with no relief. She also has been taking ibuprofen with no relief. She denies any fevers, wheezing, shortness of breath or chest pain. She denies any sick contacts at home however she states her boyfriend works for [employer] and comes in contact with a lot of people and children each day. [facility] Medical History (Updated 10/01/23 @ 08:59 by Neeta Archibald PA-C) URI (upper respiratory infection) Fat necrosis of right breast Morbid obesity Elevated liver enzymes Physical exam Shortness of breath Arcuate uterus control counseling Elevated blood pressure reading Obesity, morbid, BMI 40.0-49.9 Breast mass, right Pharyngitis Abnormal laboratory test High risk sexual behavior in adolescent Amenorrhea, secondary Anxiety No known health problems Surgical History No pertinent past surgical history Family History Mother Anxiety Father Stomach cancer Colon cancer Social History Housing: House Alcohol intake: current Alcohol intake frequency: holidays/special occasions only Patient Tobacco Use Status: Current someday Tobacco user e-Cigarette/Vaping Use: Never Used Substance Use Type: Marijuana Current occupational status: unemployed Cognitive needs: No Hearing needs: No Vision needs: No Female Reproductive History Menstrual Age of Menarche: 12 Review of Systems Const All systems reviewed & are unremarkable except as noted in HPI and below Physical Exam Vital Signs: Last Vital Signs Temp 98.4 F 10/01/23 08:27 Pulse 84 10/01/23 08:27 BP 126/80 10/01/23 08:27 Pulse Ox 98 10/01/23 08:27 Const General: cooperative, healthy appearing, comfortable and no acute distress Orientation/consciousness: patient oriented x3 Limitations: no limitations HEENT Head: Yes normal to inspection Ears: hearing grossly normal bilaterally, external ears normal and TM's normal bilaterally General nose exam: Normal external nose present, Normal nares present and No nasal discharge present Face and sinus: Yes normal facial exam and Yes sinuses nontender Mouth: Normal oral and palatal mucosa present and moist mucous membranes Throat: Yes tonsils normal, Yes uvula midline and Yes posterior oropharynx abnormal (very slight Erythema, no exudates) Eyes General: appearance normal, both eyes and all related structures Neck Neck: Yes normal visual inspection Resp Effort & Inspection: normal respiratory effort, able to speak in complete sentences, no respiratory distress, not tachypneic, no tripod positioning and no use of accessory muscles Auscultation: clear to auscultation bilaterally Cardio Rate: regular rate Rhythm: regular rhythm Heart sounds: normal S1 and S2 Skin General skin exam: no rashes or lesions noted Neuro General: patient oriented x3 Extrem General: Yes normal to inspection and Yes no clubbing, cyanosis or edema Results AMB Rapid Strep AMB Rapid Strep Negative Last Edit by Josué Smart CMA on 10/01/23 08:52 Assessment & Plan Assessment & Plan (1) URI (upper respiratory infection): Code(s): J06.9 - Acute upper respiratory infection, unspecified Qualifiers: URI type: unspecified viral URI Qualified Code(s): J06.9 - Acute upper respiratory infection, unspecified Plan: Rapid strep negative, sent COVID flu RSV testing, recommended she treat herself with [id number] medications and follow up/go to ED if she has any difficulty breathing or shortness of breath. Plan see above Orders: Orders AMB Rapid Strep Screen Today Z13.9 - Encounter for screening, unspecified SARS-CoV2/FLU/RSV Today J06.9 - Acute upper respiratory infection, unspecified Coding Level of Care Code Est Pt Level 3 (82430) Diagnoses Viral upper respiratory tract infection J06.9 URI type: unspecified viral URI
== END 2023-10-01 08:58 | disposition home or self-care (01) ==
PROVIDERS: PCP Nurse Practitioner Family; Visit Provider Physician Assistant
DX: Z13.9 Encounter for screening, unspecified (principal); J06.9 Acute upper respiratory infection, unspecified
CPT/HCPCS: 87880; 99213

== ENCOUNTER 2023-10-01 08:54 | Outpatient (REF) | payer OTHER, SELFPAY ==
[2023-10-01 11:29] LABS: Influenza A PCR NEGATIVE (Negative); Influenza B PCR NEGATIVE (Negative); Resp Syncy Virus RNA Qual PCR NEGATIVE (Negative); SARS COV2 PCR INHOUSE NEGATIVE (Negative)
== END 2023-10-01 08:55 | disposition home or self-care (01) ==
LOC: HO.LAB 08:54
PROVIDERS: Visit Provider Physician Assistant
DX: J06.9 Acute upper respiratory infection, unspecified (principal)
CPT/HCPCS: 0241U

== ENCOUNTER 2023-10-01 19:40 | Emergency (ER) | payer OTHER, SELFPAY ==
--- NOTE | ~2023-10-01 | XR_ITS ---
EXAMINATION: XR CHEST CLINICAL INFORMATION: Cough. COMPARISON: Chest 02/07/2023 TECHNIQUE: Frontal view of the chest was obtained. FINDINGS: No significant abnormality is noted involving the heart, lungs, mediastinum, bony thorax or soft tissues. XR/XR chest 1V IMPRESSION: Unremarkable chest examination.
[2023-10-01 19:43] VITALS: BP 156/104; PULSE 98; RESP 18; TEMP 37.1; O2SAT 99; BMI 46.9
--- NOTE | 2023-10-01 19:43 | ED.URI ---
HPI - URI/Sore Throat General Chief Complaint: Upper Respiratory Symptoms Stated Complaint: was a cold-now jaw hurts/head hurts Time Seen by Provider: 10/01/23 20:22 Source: patient Mode of arrival: ambulatory Limitations: no limitations History of Present Illness HPI Narrative: This is a 23-year-old woman with a past medical history of anxiety who presents to the emergency room for evaluation. Patient reports that she had been feeling sick for the last 3 days. She reports associated dry cough, postnasal drip, sore throat. She reports fever to ?99.8? F ?. She states no myalgias or chills. She reports associated headache. She states headache I spread to both of her ears and her face including jaw. She states no trauma. She states no odynophagia. She states no chest pain or dyspnea. She has no abdominal pain, nausea or vomiting. She reports going to the urgent care center and being swabbed for strep throat and for COVID-19 and influenza. She states she has not yet received the results. She reports taking 400 mg of ibuprofen at 6:00 p.m. today. She states that she did not take any Tylenol. Related Data Previous Rx's ?Medication ?Instructions ?Recorded acetaminophen 500 mg tablet 500 mg PO Q6H PRN fever or pain 02/03/23 (Tylenol Extra Strength) #14 tabs ibuprofen 400 mg tablet 400 mg PO Q6H PRN fever or pain 02/03/23 #20 tabs albuterol sulfate 90 mcg/actuation 2 puff inhalation Q4-6H PRN 02/07/23 aerosol inhaler shortness of breath or wheezing #6.7 grams Allergies Allergy/AdvReac Type Severity Reaction Status Date / Time kiwi [KIWI] Allergy Unknown SWOLLEN Verified 10/01/23 19:46 TOUNGE/HIVES Review of Systems Review of Systems: ROS as per HPI PMFSH Past Medical History Medical History (Updated 10/01/23 @ 20:46 by Shailesh Regan MD) URI (upper respiratory infection) Fat necrosis of right breast Morbid obesity Elevated liver enzymes Physical exam Shortness of breath Arcuate uterus control counseling Elevated blood pressure reading Obesity, morbid, BMI 40.0-49.9 Breast mass, right Pharyngitis Abnormal laboratory test High risk sexual behavior in adolescent Amenorrhea, secondary Anxiety No known health problems Surgical History No pertinent past surgical history Family History Family History Mother Anxiety Father Stomach cancer Colon cancer Social History Social History Housing: House Alcohol intake: current Alcohol intake frequency: holidays/special occasions only Patient Tobacco Use Status: Current someday Tobacco user e-Cigarette/Vaping Use: Never Used Substance Use Type: Marijuana Advance Directives: No Advance Directives Information Provided: No Do you have a plan to hurt others: No Plan Current occupational status: unemployed Cognitive needs: No Hearing needs: No Vision needs: No Physical Exam Vital Signs: Vital Signs: Last Vital Signs Temp 98.7 F 10/01/23 19:43 Pulse 98 10/01/23 19:43 Resp 18 10/01/23 19:43 BP 156/104 H 10/01/23 19:43 Pulse Ox 99 10/01/23 19:43 O2 Del Method Room Air 10/01/23 19:43 BMI result Body Mass Index 46.9 Gen: NAD, AOx3 HEENT: NCAT, EOMI, TMs clear bilaterally without erythema or bulging, normal ear canal without edema/erythema/purulence, no focal tenderness to palpation to the bilateral jaw, no tenderness to palpation to the bilateral mastoids or overlying skin changes/edema, normal conjunctiva, uvula midline without edema, no tenderness/swollen anterior cervical lymphadenopathy, no posterior oropharynx erythema or exudates, no buccal lesions, no dental abscess, no sublingual edema, no anterior neck edema or overlying skin changes, no gingival bleeding, no interdental papillae edema CV: RRR Pulm: CTAB, no increased work of breathing GI: Soft, NTND, no rebound, guarding or rigidity Neuro: Grossly non focal Course Course Course Narrative: This is a Rapid Medical Exam performed in triage by Rosenda Kelly PA-C. Full HPI, ROS and PE to be performed by primary ED provider. 23 year-old F w/ PMHx presenting to the ED c/o rhinorrhea, sore throat, ear/jaw and facial pain x 3 days, also reports productive cough & low grade fever. Was seen at urgent care earlier today and tested however does not know results. Testing for COVID, flu, RSV and rapid strep negative PE: mild posterior oropharyngeal erythema. uvula midline. +congestion Plan: rapid strep, viral testing Medical Decision Making Medical Decision Making MDM Narrative: Differential diagnosis includes, but is not limited to viral upper respiratory tract infection, pharyngitis, pneumonia. Patient is afebrile and hemodynamically stable on room air. Exam is benign and reassuring. There is no exam findings to suggest pharyngitis and I do not suspect a bacterial pharyngitis such as with strep throat. The patient's Centor score is 0. I independently reviewed and interpreted the patient's chest x-ray was demonstrates no focal infiltrate/consolidate or pneumothorax. I otherwise have very low clinical suspicion for pneumonia given lack of fever, sputum production, pleuritic chest pain, dyspnea, tachypnea and hypoxia. I do suspect that patient's symptoms are most likely attributed to an upper respiratory tract infection given the aforementioned constellation of symptoms. Patient is offered retesting of COVID-19, influenza and RSV but she politely declines. I considered therapy with Toradol, but patient recently self administered 400 mg of ibuprofen. I provided counseling on expectant management. I recommended supportive care such as with the salt water gargle, swelling throat space, use of honey for cough suppressant and/or cough drops/lozenges. On re-examination, patient is well-appearing and in no acute distress. ?There is no indication for further emergent evaluation in this otherwise well-appearing patient as above. ?Patient is provided written and verbal instructions, educational materials, recommendations for outpatient follow-up, strict return precautions and teach back is performed. ?Patient states understanding and agreement with plan of care. ?Patient is discharged home in stable and improved condition. Independent Interpretation I performed an independent interpretation of an: Plain X-Ray Interpretation: I independently reviewed and interpreted the patient's chest x-ray was demonstrates no focal infiltrate/consolidate or pneumothorax. Discharge Plan Discharge Clinical Impression: Upper respiratory infection Patient Disposition: Home, Self-Care Instructions: Upper Respiratory Infection (ED) Additional Instructions: You were seen and evaluated in the emergency room. You are not found to have fever and vital signs were normal. You are most likely experiencing symptoms of a viral upper respiratory tract infection. Please take 600 mg ibuprofen every 6 hours with food and water as needed for pain. You can additionally take 1000 mg Tylenol every 8 hours as needed for additional pain relief. Please consider doing salt water gargles, using cough lozenges/drops, honey or throat spray for relief of sore throat/cough. Please follow-up with your primary care doctor as needed in the next 5-7 days. Please return to the emergency room if you develop any new or worsening symptoms including, but not limited to fever greater than 100.4? F, chest pain or difficulty breathing. Prescriptions: No Action ibuprofen 400 mg tablet 400 mg PO Q6H PRN (Reason: fever or pain) Qty: 20 0RF acetaminophen [Tylenol Extra Strength] 500 mg tablet 500 mg PO Q6H PRN (Reason: fever or pain) Qty: 14 0RF albuterol sulfate 90 mcg/actuation HFA aerosol inhaler 2 puff inhalation Q4-6H PRN (Reason: shortness of breath or wheezing) Qty: 6.7 0RF Print Language: Turkmen
[2023-10-01 21:12] VITALS: BP 156/104; PULSE 98; RESP 18; TEMP 37.1; O2SAT 99
== END 2023-10-01 21:13 | disposition home or self-care (01) ==
PROVIDERS: Emergency Provider Emergency Medicine; PCP Nurse Practitioner Family
DX: J06.9 Acute upper respiratory infection, unspecified (principal); F17.200 Nicotine dependence, unspecified, uncomplicated; R05.9 Cough, unspecified
CPT/HCPCS: 71045; 99282; 99283

== ENCOUNTER 2023-10-02 10:43 | Outpatient (AMB) | payer OTHER, SELFPAY ==
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
[2023-10-02 11:02] VITALS: BP 130/90; PULSE 102; TEMP 36.8; O2SAT 98; BMI 45.0
== END 2023-10-02 12:19 | disposition home or self-care (01) ==
PROVIDERS: PCP Nurse Practitioner Family; Visit Provider Nurse Practitioner Family
DX: J32.9 Chronic sinusitis, unspecified (principal)
CPT/HCPCS: 99213

== ENCOUNTER 2023-12-09 13:53 | Outpatient (AMB) | payer OTHER, SELFPAY ==
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
[2023-12-09 13:56] VITALS: BP 136/88; PULSE 102; O2SAT 97; BMI 45.5
== END 2023-12-09 15:09 | disposition home or self-care (01) ==
PROVIDERS: PCP Nurse Practitioner Family; Visit Provider Nurse Practitioner Family
DX: Z00.00 Encounter for general adult medical examination without abnormal findings (principal)

== ENCOUNTER → 2023-12-09 13:53 | Outpatient (BNVA) | payer OTHER, SELFPAY | PROVIDERS: PCP Nurse Practitioner Family; Visit Provider Nurse Practitioner Family | DX: Z00.00 Encounter for general adult medical examination without abnormal findings (principal) | CPT/HCPCS: 99395 ==

== ENCOUNTER 2023-12-16 16:05 | Outpatient (AMB) | payer OTHER, SELFPAY ==
[2023-12-16 16:11] VITALS: BP 120/80; PULSE 82; O2SAT 99; BMI 45.7
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
== END 2023-12-16 16:43 | disposition home or self-care (01) ==
PROVIDERS: PCP Nurse Practitioner Family; Visit Provider Physician Assistant
DX: S06.0X0A Concussion without loss of consciousness, initial encounter (principal); V89.2XXA Person injured in unspecified motor-vehicle accident, traffic, initial encounter; H53.8 Other visual disturbances

== ENCOUNTER → 2023-12-16 16:05 | Outpatient (BNVA) | payer OTHER, SELFPAY | PROVIDERS: PCP Nurse Practitioner Family ==

== ENCOUNTER 2024-09-26 23:10 | Emergency (ER) | payer OTHER, SELFPAY ==
[2024-09-26 23:36] VITALS: BP 154/96; PULSE 95; RESP 20; TEMP 37.1; O2SAT 99; BMI 43.0
--- NOTE | 2024-09-27 02:52 | ED.DENTAL ---
HPI - Dental/Oral General Chief complaint: Dental/Oral Stated complaint: dental pain Time Seen by Provider: 09/27/24 02:02 Source: patient Mode of arrival: ambulatory Limitations: no limitations History of Present Illness ED Provider: Ovidio CONTRERAS HPI Narrative: Patient is a 24-year-old female presenting to the ED reporting 3 days ago she underwent a root canal of her left 2nd molar. The patient reports she was discharged with instructions for ibuprofen and Tylenol which she has been taking, denies being discharged with antibiotics. The patient reports she has been experiencing increasing pain radiating up towards her ear and now down into her neck with a temperature of 101 degrees this morning. The patient last took ibuprofen and Tylenol at approximately 22:00. The patient denies associated vomiting but does report significant nausea. Related Data Previous Rx's ?Medication ?Instructions ?Recorded albuterol sulfate 90 mcg/actuation 2 puff inhalation Q4-6H PRN 02/07/23 aerosol inhaler shortness of breath or wheezing #6.7 grams cyclobenzaprine 5 mg tablet 5 mg PO Q8H PRN Muscle Spasm #10 12/16/23 tabs prednisone 20 mg tablet 20 mg PO DAILY #5 tabs 12/16/23 acetaminophen 500 mg capsule 1,000 mg (2 x 500 mg) PO .q8 PRN 09/27/24 fever or pain #30 caps amoxicillin 875 mg-potassium 1 tab PO BID #14 tabs 09/27/24 clavulanate 125 mg tablet ibuprofen 600 mg tablet 600 mg PO Q8H PRN fever or pain 09/27/24 #30 tabs tramadol 50 mg tablet 50 mg PO TID PRN pain #10 tabs 09/27/24 Allergies Allergy/AdvReac Type Severity Reaction Status Date / Time kiwi (KIWI) Allergy Unknown SWOLLEN Verified 09/26/24 23:38 TOUNGE/HIVES Review of Systems Review of Systems: Yes all other systems are reviewed and are negative PMFSH Past Medical History Medical History Physical exam URI (upper respiratory infection) Fat necrosis of right breast Morbid obesity Elevated liver enzymes Shortness of breath Arcuate uterus control counseling Elevated blood pressure reading Obesity, morbid, BMI 40.0-49.9 Breast mass, right Pharyngitis Abnormal laboratory test High risk sexual behavior in adolescent Amenorrhea, secondary Anxiety No known health problems Surgical History No pertinent past surgical history Family History Family History Mother Anxiety Father Stomach cancer Colon cancer Social History Social History Housing: House Alcohol intake: current Alcohol intake frequency: holidays/special occasions only Patient Tobacco Use Status: Current someday Tobacco user e-Cigarette/Vaping Use: Never Used Substance Use Type: Marijuana Advance Directives: No Advance Directives Information Provided: Yes service: No Current occupational status: unemployed Cognitive needs: No Hearing needs: No Vision needs: No Physical Exam Vital Signs: Vital Signs: Last Vital Signs Temp 98.8 F 09/26/24 23:36 Pulse 95 09/26/24 23:36 Resp 20 09/26/24 23:36 BP 154/96 H 09/26/24 23:36 Pulse Ox 99 09/26/24 23:36 O2 Del Method Room Air 09/26/24 23:36 BMI result Body Mass Index 43.0 CONSTITUTIONAL: The patient appears non-toxic, well nourished and in no acute distress. Vital signs as documented. HEAD: Atraumatic, normocephalic. EYES: EOMs grossly intact, pupils equal, conjunctiva clear, no exudate. ENT: Nares patent, no discharge. Airway patent, no audible stridor, visible mucosa is pink and moist without noted lesions. Posterior pharynx shows midline nonedematous uvula with no tonsillar or peritonsillar swelling, no tonsillar exudate. There is no obvious drainable periapical abscess. NECK: trachea is midline, there is mild swelling and tenderness noted of the left anterior cervical chain, no trismus, no overlying erythema, no other obvious masses or gross abnormalities. CHEST: Symmetric movement, normal appearance. LUNGS: Non-labored work of breathing. CARDIAC: No evidence of hypoperfusion. ABDOMEN: Nondistended, no obvious injury. : Deferred. EXTREMITIES: Moves all extremities spontaneously without reported pain. No obvious injury or deformity noted. NEURO: Alert and oriented x3, CN II-XII appear grossly intact. Cerebellar Functioning grossly intact. Speech clear and appropriate. SKIN: Warm, dry, color appropriate. No rashes or lesions noted. Medical Decision Making Medical Decision Making MDM Narrative: 2:59 AM 09/27/2024 (Johnie CONTRERAS): The patient is a 24-year-old female presenting to the ED for evaluation of worsening dental pain after a root canal 3 days ago. The patient in the ED is in no acute distress, patient will be treated with ibuprofen, increased pain management, and discharged to follow up with dentist. Of note the patient is requesting a work note, will provide. Prescription Management I considered prescription management with: Pain Medication and Antibiotic Discharge Plan Discharge Clinical Impression: Toothache Patient Disposition: Home, Self-Care Instructions: Toothache (ED) Additional Instructions: Thank you for choosing [facility] Emergency Department for your care today. Your pain today appears to be related to your recent root canal. At this time there is no evidence of an acute process requiring admission to the hospital or continued ED observation, and it is safe to discharge you home. Please take Augmentin as prescribed until it is finished. You should take alternating (staggered) doses of ibuprofen 600mg and Tylenol 1000mg every 4 hours as needed for any additional pain. Please apply ice for 20 minutes every hour. As a part of your care plan, you have also been prescribed an opiate based pain medication called Ultram. Please take this medication only for severe pain that is not relieved by ibuprofen and/or Tylenol. Opiate based medications have a high risk of unintentional addiction and abuse. Take this medication only as directed and only if absolutely necessary. This medicine can make you drowsy, you are not allowed to drive, operate heavy machinery, or be the sole care provider for children while taking this medication. Please follow up with your dentist and your primary care physician for re-evaluation, additional management of your symptoms, and continued preventative care. If you do not have a primary care physician, please call the [facility] at [phone] to establish a new primary care physician. While waiting to establish your new primary care physician, you can call our [facility] at [phone] for non-emergency needs. Please return to the emergency department if you develop a severe or sudden change in your symptoms, a fever over 100.4 that does not improve with Tylenol or Ibuprofen, recurrent vomiting, or any other new or worsening symptoms or concerns. Prescriptions: New ibuprofen 600 mg tablet 600 mg PO Q8H PRN (Reason: fever or pain) Qty: 30 0RF acetaminophen 500 mg capsule 1,000 mg PO .q8 PRN (Reason: fever or pain) Qty: 30 0RF amoxicillin-pot clavulanate 875-125 mg tablet 1 tab PO BID Qty: 14 0RF tramadol 50 mg tablet 50 mg PO TID PRN (Reason: pain) Qty: 10 0RF No Action albuterol sulfate 90 mcg/actuation HFA aerosol inhaler 2 puff inhalation Q4-6H PRN (Reason: shortness of breath or wheezing) Qty: 6.7 0RF cyclobenzaprine 5 mg tablet 5 mg PO Q8H PRN (Reason: Muscle Spasm) Qty: 10 0RF prednisone 20 mg tablet 20 mg PO DAILY Qty: 5 0RF Referrals: Pradip Headley, [employer] [Primary Care Provider, Internal Medicine] Clinical Impression: Toothache Stand Alone Forms: Work/School Release Print Language: Georgian
[2024-09-27 03:04] VITALS: BP 147/99; PULSE 77; RESP 20; TEMP 36.9; O2SAT 97
== END 2024-09-27 03:05 | disposition home or self-care (01) ==
PROVIDERS: Emergency Provider Emergency Medicine Emergency Medical Services; PCP Nurse Practitioner Family
DX: K08.89 Other specified disorders of teeth and supporting structures (principal); M54.2 Cervicalgia; R11.0 Nausea; R50.9 Fever, unspecified; F17.210 Nicotine dependence, cigarettes, uncomplicated
CPT/HCPCS: 99282; 99283

== ENCOUNTER 2024-11-30 15:11 | Outpatient (REF) | payer OTHER, SELFPAY ==
[2024-12-01 10:37] LABS: Chlamydia pneumoniae PCR Not Detected (Not Detect.); Coronavirus 229E PCR Not Detected (Not Detect.); Coronavirus HKU1 PCR Not Detected (Not Detect.); Coronavirus NL63 PCR Not Detected (Not Detect.); Coronavirus OC43 PCR Not Detected (Not Detect.); RSV PCR Not Detected (Not Detect.); Rhino/Enterovirus PCR Detected (Not Detect.)
[2024-12-01 10:49] LABS: Influenza A H1 PCR Not Detected (Not Detect.); Influenza A H1-2009 PCR Not Detected (Not Detect.); Influenza A H3 PCR Not Detected (Not Detect.); SARS-CoV-2 PCR Not Detected (Not Detect.)
== END 2024-11-30 15:12 | disposition home or self-care (01) ==
LOC: HO.LNP 15:11
PROVIDERS: PCP Nurse Practitioner Family; Visit Provider Physician Assistant Medical
DX: J06.9 Acute upper respiratory infection, unspecified (principal)
CPT/HCPCS: 87633; 99212

== ENCOUNTER 2024-11-30 15:11 | Outpatient (AMB) | payer OTHER, SELFPAY ==
[2024-11-30 15:14] VITALS: BP 136/88; PULSE 96; RESP 16; TEMP 36.7; O2SAT 98; BMI 41.8
--- NOTE | 2024-11-30 15:14 | MHC.OFFWIV ---
Intake Vital Signs 11/30/24 15:14 Height 5 ft 3 in Weight 236 lb BMI 41.8 BP 136/88 Blood Pressure Location Lt brachial Position Sitting Respiration 16 Pulse 96 Pulse Source Pulse Oximeter Temp 98.0 F Temp Source Oral Pulse Oximetry (%) 98 Oxygen Delivery Method Room Air Intake Visit Reasons: EP sore throat, congestion Patient Tobacco Use Status: Current someday Tobacco user Allergies kiwi (KIWI) Allergy (Unknown, Verified 11/30/24 15:16) SWOLLEN TOUNGE/HIVES HPI HPI Comments History of Present Illness Details History - The patient is a 24-year-old female presenting with cough and congestion. - Symptoms began yesterday morning with sudden onset of congestion and sore throat. - The patient works in a small environment where illnesses spread quickly, possibly contributing to her symptoms. - She has a history of asthma and frequent streptococcal pharyngitis during childhood. - She experienced a fever yesterday morning but not since then. - The patient smokes cannabis and has not used an inhaler recently as she ran out. - She has been using OTC medications. 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 - She denies chest pain, SOB, abd pain, n/v/d, loss of taste or smell. - She is not sure if she has sick contacts. Physical Exam General: Cooperative, healthy appearing, comfortable and no acute distress Orientation/consciousness: Patient oriented x3 Limitations: No limitations Head: Normal to inspection Ears: Hearing grossly normal bilaterally, external ears normal and TM's normal bilaterally Nose: Normal external nose present, normal nares present, and no nasal discharge present. Face and sinus: Sinuses nontender to palpation. Mouth: Normal oral and palatal mucosa present and moist mucous membranes noted. Throat: Tonsils normal. Uvula is midline. Posterior oropharynx with erythema and no exudates. Eyes: Appearance normal, both eyes and all related structures Neck: Normal visual inspection, full ROM. No lymphadenopathy noted. Respiratory: Clear to auscultation bilaterally. Normal respiratory effort, able to speak in complete sentences. No respiratory distress, not tachypneic, no tripod positioning and no use of accessory muscles. Cardiovascular: Regular rate and rhythm. Normal S1 and S2 Skin: No rashes or lesions noted Patient was informed and verbally consented to the use of an ambient scribe for clinic note documentation during this visit [facility] Medical History Physical exam URI (upper respiratory infection) Fat necrosis of right breast Morbid obesity Elevated liver enzymes Shortness of breath Arcuate uterus control counseling Elevated blood pressure reading Obesity, morbid, BMI 40.0-49.9 Breast mass, right Pharyngitis Abnormal laboratory test High risk sexual behavior in adolescent Amenorrhea, secondary Anxiety No known health problems Surgical History No pertinent past surgical history Family History Mother Anxiety Father Stomach cancer Colon cancer Social History Housing: House Alcohol intake: current Alcohol intake frequency: holidays/special occasions only Patient Tobacco Use Status: Current someday Tobacco user e-Cigarette/Vaping Use: Never Used Substance Use Type: Marijuana service: No Current occupational status: unemployed Cognitive needs: No Hearing needs: No Vision needs: No Female Reproductive History Menstrual Age of Menarche: 12 Review of Systems Const All systems reviewed & are unremarkable except as noted in HPI and below Physical Exam Vital Signs: Last Vital Signs Temp 98.0 F 11/30/24 15:14 Pulse 96 11/30/24 15:14 Resp 16 11/30/24 15:14 BP 136/88 11/30/24 15:14 Pulse Ox 98 11/30/24 15:14 Oxygen Delivery Method Room Air 11/30/24 15:14 BMI result Body Mass Index 41.8 Assessment & Plan Assessment & Plan (1) URI with cough and congestion: Code(s): J06.9 - Acute upper respiratory infection, unspecified Plan Most likely Upper Respiratory Tract Infection vs viral illness vs covid vs rsv vs flu rapid was negative plan - Plan to conduct a respiratory panel test to identify any viral or bacterial pathogens. - A rapid strep test will be performed to rule out streptococcal pharyngitis. - Consideration for prescribing an inhaler due to the patient's history of asthma and current symptoms. - tylenol or motrin as needed for pain or fever - tessalon perles as needed for cough - albuterol inhaler as needed for cough and wheezing - zyrtec d daily - follow up with PCP Orders: Orders AMB Rapid Strep Screen Today J02.9 - Acute pharyngitis, unspecified Resp Pathogen [place] [facility] [place] J06.9 - Acute upper respiratory infection, unspecified Medications: New cetirizine-pseudoephedrine 5-120 mg ER 1 tab PO BID 14 tabs 0RF 7 days benzonatate 100 mg PO bid-tid PRN 21 caps 0RF Cough 7 days albuterol sulfate 90 mcg/actuation 2 puffs inhalation Q6H PRN 8.5 grams 0RF shortness of breath or wheezing or cough Refilled prednisone 20 mg PO DAILY 5 tabs 0RF Coding Level of Care Code Est Pt Level 3 (02514) Diagnoses URI with cough and congestion J06.9
== END 2024-11-30 15:48 | disposition home or self-care (01) ==
PROVIDERS: PCP Nurse Practitioner Family; Visit Provider Physician Assistant Medical
DX: J06.9 Acute upper respiratory infection, unspecified (principal)

== ENCOUNTER 2024-12-16 03:58 | Emergency (ER) | payer OTHER, SELFPAY ==
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
[2024-12-16 04:14] VITALS: BP 138/75; PULSE 106; RESP 16; TEMP 36.6; O2SAT 97; BMI 41.1
[2024-12-16 05:21] LABS: UPreg QC Valid YES
[2024-12-16 05:29] LABS: Cannabinoid Screen Urine POSITIVE (Not Detect)
--- NOTE | 2024-12-16 06:20 | PC.NURSE ---
pt taken to CT, awaiting results and disposition, ua collected and sent.
--- NOTE | 2024-12-16 06:42 | PC.NURSE ---
Notified providers of results.
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
[2024-12-16 07:54] VITALS: BP 138/75; PULSE 106; RESP 16; TEMP 36.6; O2SAT 97
== END 2024-12-16 07:54 | disposition home or self-care (01) ==
PROVIDERS: Emergency Provider Emergency Medicine; PCP Nurse Practitioner Family
DX: S00.83XA Contusion of other part of head, initial encounter (principal); F19.90 Other psychoactive substance use, unspecified, uncomplicated; Y04.2XXA Assault by strike against or bumped into by another person, initial encounter; Y93.9 Activity, unspecified; Y92.9 Unspecified place or not applicable; Y99.9 Unspecified external cause status
CPT/HCPCS: 70450; 70486; 72125; 73110; 80307; 81025; 99284

== ENCOUNTER → 2024-12-16 04:25 | Outpatient (BNV) | payer OTHER, SELFPAY | PROVIDERS: Emergency Provider Emergency Medicine; PCP Nurse Practitioner Family; Visit Provider Radiology Vascular & Interventional Radiology | DX: F12.129 Cannabis abuse with intoxication, unspecified (principal); Y04.8XXA Assault by other bodily force, initial encounter; S00.83XA Contusion of other part of head, initial encounter | CPT/HCPCS: 70450; 70486; 72125; 73110 ==

== ENCOUNTER 2024-12-28 12:08 | Outpatient (AMB) | payer OTHER, SELFPAY ==
--- NOTE | 2024-12-28 13:19 | A.OFFVIS_ITS ---
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 BMI 40.0 Allergies kiwi (KIWI) Allergy (Unknown, Verified 12/28/24 13:19) SWOLLEN TOUNGE/HIVES Medication List - Last Reconciled 12/28/24 by Luis Cuellar MD albuterol sulfate 90 mcg/actuation 2 puffs inhalation Q6H PRN HPI HPI TV SPARE HAND CARDING SWL BMI 40.0: Details: Start time: 1pm, End time: 1.45pm 40 minutes were used to discuss with patient and 5 minutes to prepare my note HPI Comments Details: Previous weight loss efforts: 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 Wakes up: 4am, Sleeps: 10.30pm Breakfast: 9am (pancake, sausage, scrambled eggs) Lunch: 12pm not daily (chicken) Dinner: 7.30pm (soups) Snacks: 4pm (Gold fish, popcorn) Exercise: has home treadmill (tracks calories, and inclines) Beverages: Coffee: none, Tea: 2/mth, Soda: none, Juice: 4-5/wk (cranberry juice), ETOH: 2-3/month PFSH Medical History Physical exam URI (upper respiratory infection) Fat necrosis of right breast Morbid obesity Elevated liver enzymes Shortness of breath Arcuate uterus control counseling Elevated blood pressure reading Obesity, morbid, BMI 40.0-49.9 Breast mass, right Pharyngitis Abnormal laboratory test High risk sexual behavior in adolescent Amenorrhea, secondary Anxiety No known health problems Surgical History No pertinent past surgical history Family History Mother Anxiety Father Stomach cancer Colon cancer Social History Housing: House Alcohol intake: current Alcohol intake frequency: holidays/special occasions only Patient Tobacco Use Status: Current someday Tobacco user e-Cigarette/Vaping Use: Never Used Substance Use Type: Marijuana service: No Current occupational status: unemployed Cognitive needs: No Hearing needs: No Vision needs: No Female Reproductive History Menstrual Age of Menarche: 12 Physical Exam Vital Signs: BMI result Body Mass Index 39.9 Telehealth Telehealth Telehealth Platform: Telephone Location of provider rendering services: practice address Location of patient: address on file Patient Identification confirmed using: Name, : Yes Telehealth method: voice only Patient verbally consented to treatment: Yes Patient verbally consented to billing insurance company: Yes Patient informed of any privacy concerns related to visit: Yes Minutes spent on Phone/Video with Pt.: 45 Assessment & Plan Assessment & Plan (1) Morbid obesity: Code(s): E66.01 - Morbid (severe) obesity due to excess calories Category: Medical Plan: 1.???Plan for lap sleeve gastrectomy. If diaphragmatic or ventral hernias are present at time of surgery, these will be repaired laparoscopically as well. I emphasized the importance of close follow-up, adherence to instructions and good communication. The surgery does not replace the need to change your lifestlyle which is the cause of the obesity problem. The surgery provides the motivation to try again to change your lifestyle, it reduces the appetite and make the transition to a better lifestyle easier and doubles the amount of weight you would lose compared to doing the lifestyle change without the surgery. You will need to be on a liquid diet with protein shakes for 2 weeks before surgery to maximize weight loss and boost your nutritional status to recover better from surgery and also for the first two weeks after surgery to let the stomach heal before we introduce other foods. After the first 2 weeks we will introduce protein bars and soft foods like scrambled eggs, cottage cheese and yogurt and after the 6th week will introduce meat, fish and cooked vegetables in small amounts. Over time you should be able to eat everything in small amounts. Side effects like nausea, vomiting, heartburn or abdominal pain are not common in the practice unless you are not following in the practice. This operation requires lifetime commitment to following in our practice and communication with me. You will much less weight and experience side effects if you don?t communicate or not following in the practice. Complications are rare and in our practice is about 1/10 of the national average. However, you can develop bleeding that may require transfusion (hasn?t happened for year in the practice), you may from complications (we did not have any deaths in the practice) and infections. Infections are usually a result of breakdown in communication or not understa nding or following directions correctly. They are difficult to treat, they can happen during the first 6 weeks, they may require to be in the hospital for weeks or even months, not being able to eat by mouth and you may have drains and surgeries to try and correct the issue. 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 2. Nutritional counseling. Start with one CELEBRATE REBUILD protein (buy at hospital's gift shop) shakes (HALF scoop in 8oz low fat unsweetened almond milk each) at 5am-7am, 1 protein bar (CELEBRATE protein bars, buy at [facility] [employer] [facility]) at 8am-10am, another CELEBRATE REBUILD protein shakes (HALF scoop in 8oz low fat unsweetened almond milk each) at 11m-1pm, another Celebrate protein bar at 2pm-4pm, dinner at 5pm (8 forks of protein and 8 forks of salad/vegetables) AND another Celebrate protein bar after dinner at 7pm-9pm. So you do 2 protein shakes, 2 protein bars and one meal per day. Meal to include lean meat (beef, fish, pork, turkey, chicken), or korean yogurt, or egg whites, or beans with a salad with olive oil and fruits (berries, pears, apples, kiwi). Avoid salt, breads, potatoes, rice, pasta, desserts. 3. Each shake would be drunk slowly, like coffee in a period of 2 hours. 4. Cut each bar in 4 pieces and eat each piece in 30min ?to make each bar last 2 hours. 5. I emphasized the importance of measuring accurately the food portion and measure it when serving the food in plate 6. The meal portions include 8 full-size forks of meat and 8 full-size forks of salad. You always eat the meat portion but you can replace up to 4 forks for salad/vegetables with rice, potatoes or pasta, or a fruit ?if you like. The less you do it the better weight loss will be. 7. One full-size fork is what it can be scooped on the fork without falling aside and not what can be bit with the fork. Use regular forks like those you find in a typical restaurant. 8.? Please buy the body composition scale we discussed and send me weight measurements as soon as possible and then once a week. Always include your diet and exercise plan. 9. Start treadmill with an incline of 2.0 and speed of 3.0. Increase incline by 1 every 3 min to a max incline of 8.0, stay 3min at 8.0 and then return to 2.0 and repeat same steps until calorie goal is met. Goal is to burn 2000 calories per week on exercise, which means either 300 calories daily, or 400 calories 5 days per week. 10.?It is important of avoiding and for at least 18 months postoperatively and has been discussed at the infosession. 11. Goal is to lose at least 1.5-2lbs per week 12. Goal to lose 10% of your weight before surgery, which is about 25lbs. Ultimate weight goal: 200lbs before surgery 13. Please follow the diet plan exactly without any change. If you don't like something about the plan or you feel hungry you need to communicate with me so I can help you revise the plan. You should not change the plan yourself 14. To be scheduled for EGD to assess the stomach's anatomy. The possibility of biopsies was discussed. Patient needs to avoid use of NSAIDs and aspirin for 1 week prior to EGD. You must be on liquids only the day before your endoscopy. Risks of perforation and bleeding was discussed with the patient. This will be an outpatient procedure with IV sedation.
[2024-12-28 13:27] VITALS: BMI 39.9
== END 2024-12-28 17:09 | disposition home or self-care (01) ==
LOC: HO.HBS 12:08
PROVIDERS: PCP Nurse Practitioner Family; Visit Provider Surgery
DX: E66.9 Obesity, unspecified (principal); Z68.39 Body mass index [BMI] 39.0-39.9, adult
CPT/HCPCS: 98014